=== PATIENT | female | born 1995 | race Caucasian/White ===

== ENCOUNTER 2025-02-17 13:54 | Observation (INO) | payer BC, SELFPAY ==
--- NOTE | ~2025-02-17 | CT_ITS ---
EXAMINATION: CT abdomen pelvis w con DATE: 02/17/2025 17:28 INDICATION: upper abd pain, n/v TECHNIQUE: Computed tomography (CT) of the abdomen and pelvis was performed with 100 mL Omnipaque-350 intravenous contrast. Automated exposure control and iterative reconstruction technique were employe d. The dose-length product was 699.38 mGy-cm. COMPARISON: None. FINDINGS: Lower thorax: Unremarkable Liver: Normal. Biliary/Gallbladder: Multiple gallstones. The gallbladder is distended. Mild gallbladder wall thicken ing/edema. Mild surrounding inflammatory change. No bile duct dilation. Pancreas: No mass or duct dilation. Spleen: Normal. Adrenals:No mass. Kidneys: No suspicious mass, obstructing stone, or hydronephrosis. GI tract: Mild distal esophageal and gastric wall edema. No small or large bowel dilation. Normal juancho endix. Mesentery/Peritoneum: No ascites, mass, or free air. Retroperitoneum: No mass. Pelvis: Pelvic organs are within normal limits. Soft Tissues: Soft tissues and body wall unremarkable. Bones: No acute osseous finding. IMPRESSION: Mild esophagitis/gastritis. Acute cholecystitis. Reviewed, dictated and finalized at location K.
[2025-02-17 13:56] VITALS: BP 150/102; PULSE 106; RESP 16; TEMP 37.3; O2SAT 100
[2025-02-17 16:30] LABS: Hematocrit 39.5 % (37.0-47.0); Hemoglobin 13.0 g/dL (12.0-15.0); Immature Granulocyte Percent A 0.4 % (0-0.5); Lymphocytes Absolute Auto 1.85 K/mm3 (0.9-3.2); Mean Corpuscular HGB Conc 32.9 g/dl (32-36); Mean Corpuscular Hemoglobin 30.4 pg (26-34); Mean Corpuscular Volume 92.3 fl (80-100); Nucleated Red Blood Cells Absolute Auto 0.000 K/mm3 (0.0-0.012); Nucleated Red Blood Cells Perc 0.0 % (0.0-0.2); Platelet Count Result 381 k/mm3 (150-375); Red Blood Count 4.28 M/mm3 (4.2-5.4); White Blood Count 12.7 K/mm3 (4.5-10.0)
[2025-02-17 16:41] LABS: Alanine Aminotransferase 14 U/L (6-35); Albumin Level 4.3 g/dL (3.5-5.1); Alkaline Phosphatase 78 U/L (38-126); Anion Gap 10 mmol/L (4-12); Aspartate Amino Transferase 21 U/L (14-36); Bilirubin,Total 0.6 mg/dL (0.2-1.3); Blood Urea Nitrogen 8 mg/dL (7-17); Calcium 9.5 mg/dL (8.4-10.2); Carbon Dioxide 24 mmol/L (22-30); Chloride 106 mmol/L (98-107); Estimated CRCL calculation 112 ml/min; Estimated Glomerular Filt Rate > 60; Glucose 109 mg/dL (65-110); Potassium 4.1 mmol/L (3.4-5.0); Sodium 140 mmol/L (137-145); Total Protein 8.4 g/dL (6.3-8.2)
[2025-02-17 16:54] VITALS: BP 134/82; PULSE 80; RESP 16; O2SAT 100
[2025-02-17 16:57] LABS: Add Urine Microscopic? YES; Appearance Urine Clear (Clear); Glucose Urine UA Negative (Negative); Leukocyte Esterase Ur Trace LEU/UL (Negative); Nitrate Urine Negative (Negative); Non Pathogenic Casts 0-2; Specific Grav Ur 1.026 (1.001-1.035)
[2025-02-17 17:00] LABS: BEDSIDEPREGUCG Negative (Negative)
[2025-02-17] MEDS: BELLADONNA ALK/PHENOB ELIX 10 ML, MAG HYDROX/ALUMINUM HYD/SIMETH 30 ML, LIDOCAINE 2% VI... PO (17:31)
[2025-02-17] MEDS: FAMOTIDINE 20 MG/2 ML VIAL IV PUSH (17:32)
[2025-02-17] MEDS: ONDANSETRON INJ 4 MG/2 ML VIAL IV PUSH ×2 (17:32→20:15)
[2025-02-17 17:35] VITALS: O2SAT 100
--- NOTE | 2025-02-17 18:02 | ED_ITS ---
HPI - Abdominal Pain General Chief Complaint: Abdominal Pain <LIANET Reyna Last Filed: 02/17/25 18:48> Stated Complaint: Upper ABD Pain w/ Nausea <LIANET Reyna Last Filed: 02/17/25 18:48> Time Seen by Provider: 02/17/25 16:30 <LIANET Reyna Last Filed: 02/17/25 18:48> Source: patient <LIANET Reyna Last Filed: 02/17/25 18:48> Mode of arrival: ambulatory <LIANET Reyna Last Filed: 02/17/25 18:48> Limitations: no limitations <LIANET Reyna Last Filed: 02/17/25 18:48> History of Present Illness HPI narrative: Patient is a 29-year-old female who presents the ED with report of upper abdominal pain. Patient reports having intermittent pain over the last 1 week. Worse with eating. Has had associated nausea and vomiting. She is concerned she has an ulcer. Has tried taking Tums at home without improvement. Denies taking anything further for acid reflux. She was seen at [facility] yesterday, had labs, EKG/trop performed. Did not have a CT scan. Was prescribed omeprazole and Zofran for home. Patient denies improvement of pain. Denies fevers. Denies diarrhea, constipation, rectal bleeding, melena. <LIANET Reyna Last Filed: 02/17/25 18:48> Related Data Allergies/Adverse Reactions: Allergies Allergy/AdvReac Type Severity Reaction Status Date / Time No Known Allergies Allergy Verified 02/17/25 14:01 <LIANET Reyna Last Filed: 02/17/25 18:48> Review of Systems 2 Review of Systems: All systems reviewed & are unremarkable except as noted in HPI. <LIANET Reyna Last Filed: 02/17/25 18:48> All systems reviewed & are unremarkable except as noted in HPI and below < LIANET Reyna Last Filed: 02/17/25 18:48> Exam 2 Narrative: GENERAL: Uncomfortable appearing, obese with BMI of 35.5, non-toxic, in no acute distress. HEAD: Normocephalic, atraumatic. RESPIRATORY: Airway patent, respirations nonlabored. Clear to auscultation bilaterally, no rales, rhonchi, wheezing. CARDIOVASCULAR: Regular rate and rhythm without murmurs, rubs, or gallops. ABDOMINAL: Soft, diffuse tenderness throughout right upper quadrant, epigastric region, nondistended. Normoactive BS. MUSCULOSKELETAL: Moves all extremities. No gross deformities. SKIN: Warm, dry, normal color. NEURO: A&O X3. Speech clear. Cranial nerves II-XII grossly intact. Steady gait. No ataxic movements. PSYCHIATRIC: Anxious, tearful. Normal interaction. <LIANET Reyna Last Filed: 02/17/25 18:48> Course MIX TECHNICIAN/PA Physician Supervision This visit was performed by both a physician and an APC. I performed all aspects of the MDM as documented. <Jose Alfredo Monson MD - Last Filed: 02/17/25 19:21> Vital Signs Vital signs: Vital Signs Temperature 99.2 F 02/17/25 13:56 Pulse Rate 106 H 02/17/25 13:56 Respiratory Rate 16 02/17/25 13:56 Blood Pressure 150/102 H 02/17/25 13:56 Pulse Oximetry 100 02/17/25 13:56 Oxygen Delivery Room Air 02/17/25 13:56 Temperature 99.2 F 02/17/25 13:56 Pulse Rate 80 02/17/25 16:54 Respiratory Rate 16 02/17/25 16:54 Blood Pressure 134/82 02/17/25 16:54 Pulse Oximetry 100 02/17/25 17:35 Oxygen Delivery Room Air 02/17/25 16:54 <Rhonda Maldonado PA-C - Last Filed: 02/17/25 18:48> Vital Signs Temperature 99.2 F 02/17/25 13:56 Pulse Rate 106 H 02/17/25 13:56 Respiratory Rate 16 02/17/25 13:56 Blood Pressure 150/102 H 02/17/25 13:56 Pulse Oximetry 100 02/17/25 13:56 Oxygen Delivery Room Air 02/17/25 13:56 Temperature 99.2 F 02/17/25 13:56 Pulse Rate 80 02/17/25 16:54 Respiratory Rate 16 02/17/25 16:54 Blood Pressure 134/82 02/17/25 16:54 Pulse Oximetry 100 02/17/25 17:35 Oxygen Delivery Room Air 02/17/25 16:54 <Jose Alfredo Monson MD - Last Filed: 02/17/25 19:21> MDM - Abdominal Pain MDM Narrative Medical decision making narrative: Patient presented to ED with upper abdominal pain, ongoing for the last 1 week, worsening, worse with eating. Associated with nausea, vomiting. Patient mildly tachycardic upon arrival, but uncomfortable/anxious appearing, possibly related to pain. Cbc with blood cell count of 12.7. Neutrophil predominance. CMP is unremarkable. Normal LFTs. Lipase. UA with trace leuk esterase, 6-10 WBC. Urine negative. Patient denies urinary complaints. Sent for culture. CT scan of abdomen/pelvis obtained showing acute cholecystitis, also showing esophagitis/gastritis. Consistent with clinical picture. Patient given morphine, Pepcid, GI cocktail. She is feeling improved, but fairly uncomfortable still. Rocephin and Flagyl started. Discussed case with Dr. Whitley, general surgery, accepted patient for admission under his service. Advised clear liquids until midnight, NPO after midnight. PRN pain meds ordered. Patient in agreement with plan and admission. <Rhonda Maldonado PA-C - Last Filed: 02/17/25 18:48> Medical Records Attestation: I reviewed the patient's medical records. <Rhonda Maldonado PA-C - Last Filed: 02/17/25 18:48> Lab Data Attestation: I reviewed the patient's lab results. <Rhonda Maldonado PA-C - Last Filed: 02/17/25 18:48> Result diagrams: 02/17/25 16:25 02/17/25 16:25 <LIANET Reyna Last Filed: 02/17/25 18:48> Labs: Lab Results 06/28/25 06/28/25 06/28/25 Range/Units 16:25 16:48 16:57 WBC 12.7 H (4.5-10.0) K/mm3 RBC 4.28 (4.2-5.4) M/mm3 Hgb 13.0 (12.0-15.0) g/dL Hct 39.5 (37.0-47.0) % MCV 92.3 (80-100) fl MCH 30.4 (26-34) pg MCHC 32.9 (32-36) g/dl RDW 11.7 (11.5-14.5) % Plt Count 381 H (150-375) k/mm3 MPV 8.5 (7.4-10.4) fl Immature Gran % (Auto) 0.4 (0-0.5) % Neut % (Auto) 77.4 H (45.5-73.1) % Lymph % (Auto) 14.5 L (18.3-44.2) % Bollinger % (Auto) 5.9 (2.6-8.5) % Eos % (Auto) 1.3 (0-4.4) % Baso % (Auto) 0.5 (0.2-1.2) % Lymph # (Auto) 1.85 (0.9-3.2) K/mm3 Bollinger # (Auto) 0.8 H (0.1-0.6) K/mm3 Eos # (Auto) 0.2 (0-0.3) K/mm3 Baso # (Auto) 0.1 (0.0-0.1) K/mm3 Abs Immat Gran (auto) 0.05 H (0.00-0.031) K/mm3 Absolute Neuts (auto) 9.9 H (1.3-6.7) K/mm3 Absolute Nucleated RBC 0.000 (0.0-0.012) K/mm3 Nucleated RBC % 0.0 (0.0-0.2) % Sodium 140 (137-145) mmol/L Potassium 4.1 (3.4-5.0) mmol/L Chloride 106 (98-107) mmol/L Carbon Dioxide 24 (22-30) mmol/L Anion Gap 10 (4-12) mmol/L BUN 8 (7-17) mg/dL Creatinine 0.69 L (0.7-1.0) mg/dL Estim Creat Clear Calc 112 ml/min Estimated GFR > 60 (59 - ) Glucose 109 (65-110) mg/dL Calcium 9.5 (8.4-10.2) mg/dL Total Bilirubin 0.6 (0.2-1.3) mg/dL AST 21 (14-36) U/L ALT 14 (6-35) U/L Alkaline Phosphatase 78 (38-126) U/L Total Protein 8.4 H (6.3-8.2) g/dL Albumin 4.3 (3.5-5.1) g/dL Lipase 49 (23-300) U/L Urine Color Dark yellow (Yellow) Urine Appearance Clear (Clear) Urine pH 5.5 (5.0-9.0) Ur Specific Stella 1.026 (1.001-1.035) Urine Protein Trace (Negative) mg/dL Urine Glucose (UA) Negative (Negative) mg/dL Urine Ketones Trace H (Negative) mg/dL Ur Blood (Man) Negative (Negative) Urine Nitrate Negative (Negative) Urine Bilirubin 1+ H (Negative) Urine Urobilinogen 1.0 (<2.0) mg/dL Leukocyte Esterase Rfl Trace H (Negative) SHAHIDA/UL Urine RBC 0-2 (0-2) /hpf Urine WBC 6-10 H (0-3) /hpf Ur Squamous Epith Cells Few (Few) /hpf Urine Bacteria None seen /hpf Urine Casts 0-2 POC Urine HCG, Qual Negative (Negative) <Rhonda Maldonado PA-C - Last Filed: 02/17/25 18:48> Lab Results 02/17/25 02/17/25 02/17/25 Range/Units 16:25 16:48 16:57 WBC 12.7 H (4.5-10.0) K/mm3 RBC 4.28 (4.2-5.4) M/mm3 Hgb 13.0 (12.0-15.0) g/dL Hct 39.5 (37.0-47.0) % MCV 92.3 (80-100) fl MCH 30.4 (26-34) pg MCHC 32.9 (32-36) g/dl RDW 11.7 (11.5-14.5) % Plt Count 381 H (150-375) k/mm3 MPV 8.5 (7.4-10.4) fl Immature Gran % (Auto) 0.4 (0-0.5) % Neut % (Auto) 77.4 H (45.5-73.1) % Lymph % (Auto) 14.5 L (18.3-44.2) % Bollinger % (Auto) 5.9 (2.6-8.5) % Eos % (Auto) 1.3 (0-4.4) % Baso % (Auto) 0.5 (0.2-1.2) % Lymph # (Auto) 1.85 (0.9-3.2) K/mm3 Bollinger # (Auto) 0.8 H (0.1-0.6) K/mm3 Eos # (Auto) 0.2 (0-0.3) K/mm3 Baso # (Auto) 0.1 (0.0-0.1) K/mm3 Abs Immat Gran (auto) 0.05 H (0.00-0.031) K/mm3 Absolute Neuts (auto) 9.9 H (1.3-6.7) K/mm3 Absolute Nucleated RBC 0.000 (0.0-0.012) K/mm3 Nucleated RBC % 0.0 (0.0-0.2) % Sodium 140 (137-145) mmol/L Potassium 4.1 (3.4-5.0) mmol/L Chloride 106 (98-107) mmol/L Carbon Dioxide 24 (22-30) mmol/L Anion Gap 10 (4-12) mmol/L BUN 8 (7-17) mg/dL Creatinine 0.69 L (0.7-1.0) mg/dL Estim Creat Clear Calc 112 ml/min Estimated GFR > 60 (59 - ) Glucose 109 (65-110) mg/dL Calcium 9.5 (8.4-10.2) mg/dL Total Bilirubin 0.6 (0.2-1.3) mg/dL AST 21 (14-36) U/L ALT 14 (6-35) U/L Alkaline Phosphatase 78 (38-126) U/L Total Protein 8.4 H (6.3-8.2) g/dL Albumin 4.3 (3.5-5.1) g/dL Lipase 49 (23-300) U/L Urine Color Dark yellow (Yellow) Urine Appearance Clear (Clear) Urine pH 5.5 (5.0-9.0) Ur Specific Stella 1.026 (1.001-1.035) Urine Protein Trace (Negative) mg/dL Urine Glucose (UA) Negative (Negative) mg/dL Urine Ketones Trace H (Negative) mg/dL Ur Blood (Man) Negative (Negative) Urine Nitrate Negative (Negative) Urine Bilirubin 1+ H (Negative) Urine Urobilinogen 1.0 (<2.0) mg/dL Leukocyte Esterase Rfl Trace H (Negative) SHAHIDA/UL Urine RBC 0-2 (0-2) /hpf Urine WBC 6-10 H (0-3) /hpf Ur Squamous Epith Cells Few (Few) /hpf Urine Bacteria None seen /hpf Urine Casts 0-2 POC Urine HCG, Qual Negative (Negative) <Jose Alfredo Monson MD - Last Filed: 02/17/25 19:21> Imaging Data Attestation: I personally reviewed and interpreted this imaging study as follows: < Rhonda Maldonado PA-C - Last Filed: 02/17/25 18:48> Radiologist's impression: ITS Impressions Abdomen/Pelvis CT 02/17/25 17:43 IMPRESSION: Mild esophagitis/gastritis. Acute cholecystitis. <Rhonda Maldonado PA-C - Last Filed: 02/17/25 18:48> ITS Impressions Abdomen/Pelvis CT 02/17/25 17:43 IMPRESSION: Mild esophagitis/gastritis. Acute cholecystitis. <Jose Alfredo Monson MD - Last Filed: 02/17/25 19:21> Discharge Plan Discharge Clinical Impression: Acute cholecystitis Gastritis Qualifiers: Gastritis type: unspecified gastritis Chronicity: acute Gastritis bleeding: w ithout bleeding Qualified Code(s): K29.00 - Acute gastritis without bleeding <Rhonda Maldonado PA-C - Last Filed: 02/17/25 18:48> Patient Disposition: Still a Patient <LIANET Reyna Last Filed: 02/17/25 18:48> Condition: Stable <LIANET Reyna Last Filed: 02/17/25 18:48>
[2025-02-17] MEDS: metroNIDAZOLE 500 MG/ISO 100ML 500 MG/100 ML BAG 100 MG IVPB (18:34)
[2025-02-17] MEDS: MORPHINE SULFATE (*CRX) 4 MG/ML INJ IV PUSH ×3 (18:36→22:22)
[2025-02-17] MEDS: SODIUM CHLORIDE 0.9% IV 1,000 ML 999 ML IV CONT (18:36)
[2025-02-17 18:56] LABS: Lipase 49 U/L (23-300)
[2025-02-17 20:23] VITALS: BMI 37.8
[2025-02-17 21:19] VITALS: BP 136/81; PULSE 78; RESP 16; TEMP 38.4; O2SAT 98
[2025-02-18] VITALS (12 sets, daily range): BP systolic 104–142; BP diastolic 59–100; PULSE 62–110; RESP 15–26; TEMP 36.2–36.9; O2SAT 96–100
[2025-02-18] MEDS: MORPHINE SULFATE (*CRX) 4 MG/ML INJ IV PUSH ×2 (00:22→02:20)
[2025-02-18] MEDS: metroNIDAZOLE 500 MG/ISO 100ML 500 MG/100 ML BAG 100 MG IVPB ×3 (02:17→17:17)
[2025-02-18] MEDS: IBUPROFEN IV 800 MG/200 ML 800 MG/200 ML BAG 400 MG IVPB ×2 (03:13→10:15)
[2025-02-18] MEDS: HYDROmorphone HCL INJ (*CRX) 2 MG/ML VIAL 1 MG IV PUSH ×2 (06:05→08:45)
[2025-02-18 07:09] LABS: Hematocrit 37.6 % (37.0-47.0); Hemoglobin 12.1 g/dL (12.0-15.0); Mean Corpuscular HGB Conc 32.2 g/dl (32-36); Mean Corpuscular Hemoglobin 30.6 pg (26-34); Mean Corpuscular Volume 94.9 fl (80-100); Platelet Count Result 337 k/mm3 (150-375); Red Blood Count 3.96 M/mm3 (4.2-5.4); White Blood Count 12.5 K/mm3 (4.5-10.0)
[2025-02-18 07:24] LABS: Alanine Aminotransferase 12 U/L (6-35); Albumin Level 3.8 g/dL (3.5-5.1); Alkaline Phosphatase 76 U/L (38-126); Anion Gap 10 mmol/L (4-12); Aspartate Amino Transferase 26 U/L (14-36); Bilirubin,Total 0.7 mg/dL (0.2-1.3); Blood Urea Nitrogen 5 mg/dL (7-17); Calcium 8.7 mg/dL (8.4-10.2); Carbon Dioxide 23 mmol/L (22-30); Chloride 105 mmol/L (98-107); Estimated CRCL calculation 126 ml/min; Estimated Glomerular Filt Rate > 60; Glucose 96 mg/dL (65-110); Potassium 3.7 mmol/L (3.4-5.0); Sodium 138 mmol/L (137-145); Total Protein 7.2 g/dL (6.3-8.2)
--- NOTE | 2025-02-18 09:49 | PM.IMHP ---
H&P: HPI History of Present Illness Date/Time: 02/18/25 09:49 Chief Complaint: Right upper quadrant pain Narrative: This is a 29-year-old woman who presented to the emergency department overnight with right upper quadrant pain. She was having intermittent pain for about 1 week but then about 3 days ago began experiencing constant pain. She was also experiencing nausea and vomiting. She remembers eating beef stroganoff for dinner before the pain started but does not recall any other foods that have made this worse. She has never had symptoms like this in the past. She did go to [facility] Emergency Department on Wednesday but no imaging was done and they said that it was likely gastritis. She then presented to our emergency department for further evaluation. She was noted to have an elevated white blood count but normal liver enzymes. CT showed evidence of acute cholecystitis with cholelithiasis. She was noted to have a fever last night but denied any fevers prior to this. Review of Systems Review of Systems: All systems reviewed & are unremarkable except as noted in HPI and below Eyes: Eyes: Denies change in vision ENT: Denies hearing loss, Denies neck pain and Denies sore throat Cardiovascular: Cardiovascular: Denies chest pain and Denies dyspnea Respiratory: Respiratory: Denies cough, Denies dyspnea and Denies wheezing Gastrointestinal: Gastrointestinal: Reports as per HPI Genitourinary: Genitourinary: Denies hematuria and Denies dysuria Musculoskeletal: Musculoskeletal: Denies arthralgias, Denies joint swelling and Denies neck pain Allergic/Immunologic: Allergic/Immunologic: Denies wheezing PMFSH Past Medical History Medical History (Updated 02/18/25 @ 09:54 by Darshan Whitley DO) Anxiety Surgical History Surgical History (Updated 02/18/25 @ 09:53 by Darshan Whitley DO) History of lumpectomy of left breast Family History Family History (Updated 02/17/25 @ 20:35 by Emigdio Holt RN) Grandparent Diabetes mellitus Hypertension Cancer of brain Grandparent Skin cancer Grandparent Thyroid cancer Grandparent Leukemia Social History Social History Smoking status: Never smoker Alcohol intake: current Drinks per week: 1 Substance use: never Do You Feel Safe in your Home?: Yes Lack of Transportation: No Lack of Food: Never True Current Housing: I Have Housing Concerned About Future Housing: No Difficulty Paying Gas/Electric Bills: No Difficulty Paying for Meds: No Currently Unemployed: No Education: Trade/Vocational Certificate Difficulty w/ Childcare or Family Care: No Spiritual care concerns: No Meds Home Medications and Allergies Home Medications ?Medication ?Instructions ?Recorded ?Confirmed ?Type sertraline 50 mg tablet 50 mg PO HS 02/17/25 02/17/25 History Allergies Allergy/AdvReac Type Severity Reaction Status Date / Time mustard Allergy Intermediate Anaphylaxis Verified 02/17/25 20:20 lactose Allergy Mild Diarrhea Verified 02/17/25 20:20 Vital Signs Vital Signs - 24 hr 02/17/25 13:56 02/17/25 16:54 02/17/25 17:35 Temperature 99.2 F Pulse Rate 106 H 80 Respiratory Rate 16 16 Blood Pressure 150/102 H 134/82 Pulse Oximetry 100 100 100 Oxygen Delivery Room Air Room Air 02/17/25 21:19 02/18/25 02:23 02/18/25 04:57 Temperature 101.1 F H 97.1 F L Pulse Rate 78 94 91 Respiratory Rate 16 26 H 20 Blood Pressure 136/81 142/100 H 128/80 Pulse Oximetry 98 100 96 Oxygen Delivery Exam Const: General: alert; No acute distress Orientation/consciousness: patient oriented x3 Limitations: no limitations HENMT: Head: normocephalic and atraumatic Ears: hearing grossly normal bilaterally Face/Nose/Sinus: Normal external nose present and Normal nares present Mouth: Yes Normal oral and palatal mucosa present and Yes moist mucous membranes Eyes: General: appearance normal, both eyes and all related structures Conjunctivae: conjunctivae normal Sclera: sclerae normal Pupils: Equal, round and reactive pupils present EOM: EOMs intact bilaterally Neck: Neck: normal visual inspection, full ROM, no lymphadenopathy, supple and no JVD Lymphatic: no lymphadenopathy noted Chest: Chest palpation & inspection: normal inspection of the chest Resp: Effort & Inspection: normal respiratory effort and able to speak in complete sentences Auscultation: clear to auscultation bilaterally Percussion: percussion normal Cardio: Jugular venous distension: no JVD Rate: regular rate Rhythm: regular rhythm Heart sounds: S1 normal heart sound present and S2 normal heart sound present Peripheral pulses: Peripheral pulses 2+ throughout GI: Inspection: normal to inspection and non-distended GI Palp: Yes Soft to palpation, Yes Tenderness to palpation present (GI) (Right upper quadrant), Yes Guarding due to palpation present (GI) (Right upper quadrant) and No Rebound tenderness present Auscultation: normal bowel sounds : General: Yes no CVA tenderness Back/Spine/Pelvis: Back: no CVA tenderness Skin: General skin exam: normal color and dry skin Neuro: General: patient oriented x3, gait normal, moves all extremities, no focal motor deficits and CN's II-XI intact bilaterally Cranial nerves: Yes Equal, round and reactive pupils present Speech: normal speech Extrem: General: normal to inspection and capillary refill normal H&P: Results Labs Labs: Short CBC 02/17/25 02/18/25 Range/Units 16:25 05:45 WBC 12.7 H 12.5 H (4.5-10.0) K/mm3 Hgb 13.0 12.1 (12.0-15.0) g/dL Hct 39.5 37.6 (37.0-47.0) % Plt Count 381 H 337 (150-375) k/mm3 BMP 02/17/25 02/18/25 16:25 05:45 Sodium 140 138 Potassium 4.1 3.7 Chloride 106 105 Carbon Dioxide 24 23 BUN 8 5 L Creatinine 0.69 L 0.63 L Glucose 109 96 Calcium 9.5 8.7 Liver Function 02/17/25 02/18/25 Range/Units 16:25 05:45 Total Bilirubin 0.6 0.7 (0.2-1.3) mg/dL AST 21 26 (14-36) U/L ALT 14 12 (6-35) U/L Alkaline Phosphatase 78 76 (38-126) U/L Albumin 4.3 3.8 (3.5-5.1) g/dL Urine 02/17/25 Range/Units 16:48 Urine Color Dark yellow (Yellow) Urine Appearance Clear (Clear) Urine pH 5.5 (5.0-9.0) Ur Specific [place] 1.026 (1.001-1.035) Urine Protein Trace (Negative) mg/dL Urine Glucose (UA) Negative (Negative) mg/dL Imaging CT scan - abdomen: Radiologist's impression: ITS Impressions Abdomen/Pelvis CT 02/17/25 17:43 IMPRESSION: Mild esophagitis/gastritis. Acute cholecystitis. Assessment and Plan Assessment and plan (1) Acute calculous cholecystitis: Code(s): K80.00 - Calculus of gallbladder with acute cholecystitis without obstruction Status: Acute Assessment and Plan: Have reviewed the CT and discussed findings with the patient. She has evidence of acute calculous cholecystitis and continues to have significant pain. She is getting Dilaudid q.2 hours p.r.n. but still is having breakthrough pain. She also had the fever last night which raises concerns for cholangitis or infected cholecystitis. She has been started on ceftriaxone and metronidazole. I have recommended laparoscopic cholecystectomy, possible open. I discussed the procedure, risks, benefits, and alternatives. I discussed that this can be a much more technically difficult surgery due to the active inflammation. There are risks of surrounding organ injury. There are also risks of aborting the laparoscopic cholecystectomy and just placing a drain in the gallbladder. Patient voiced her understanding. Will proceed with surgery today. (2) Anxiety: Code(s): F41.9 - Anxiety disorder, unspecified Status: Acute Hospitalist [facility] Medication Reconciliation I have utilized all available resources to obtain, update and review the patients current medications (includes all prescriptions, OTC, herbals, cannabis, and nutritional supplements).: Yes
--- NOTE | 2025-02-18 09:57 | WPDHPUPDATE1 ---
History and Physical Update Update Date/Time: 02/18/25 09:57 History and Physical has been reviewed, including an updated exam of the patient. There are NO changes in the patient's condition. Risks, benefits, and alternatives have been discussed and questions answered. Patient agrees to proceed with procedure.
[2025-02-18] MEDS: LACTATED RINGERS 1,000 ML 150 ML IV CONT (10:09)
--- NOTE | 2025-02-18 11:02 | P.PNAN_ITS ---
Anes - Initial Pre Proc Eval Procedure: Operation Date: 02/18/25 11:45 Proposed Procedures p Laparoscopic Cholecystectomy - Darshan Whitley DO Date/Time: 02/18/25 11:02 Surgeon: Darshan Whitley DO Pre Op Diagnosis: Acute cholecystitis Patient Data Age: 29 Gender: F Height: 1.6 m Weight: 97 kg Last Vital Signs Temp 36.2 C L 02/18/25 04:57 Pulse 91 02/18/25 04:57 Resp 20 02/18/25 04:57 BP 128/80 02/18/25 04:57 Pulse Ox 96 02/18/25 04:57 O2 Del Method Room Air 02/18/25 08:00 Allergies Allergy/AdvReac Type Severity Reaction Status Date / Time mustard Allergy Intermediate Anaphylaxis Verified 02/17/25 20:20 lactose Allergy Mild Diarrhea Verified 02/17/25 20:20 Home Medications ?Medication ?Instructions ?Recorded ?Confirmed ?Type sertraline 50 mg tablet 50 mg PO HS 02/17/25 02/17/25 History Laboratory Tests 02/17/25 02/17/25 02/17/25 16:25 16:48 16:57 WBC 12.7 H K/mm3 (4.5-10.0) RBC 4.28 M/mm3 (4.2-5.4) Hgb 13.0 g/dL (12.0-15.0) Hct 39.5 % (37.0-47.0) MCV 92.3 fl (80-100) MCH 30.4 pg (26-34) MCHC 32.9 g/dl (32-36) RDW 11.7 % (11.5-14.5) Plt Count 381 H k/mm3 (150-375) MPV 8.5 fl (7.4-10.4) Immature Gran % (Auto) 0.4 % (0-0.5) Neut % (Auto) 77.4 H % (45.5-73.1) Lymph % (Auto) 14.5 L % (18.3-44.2) [place] % (Auto) 5.9 % (2.6-8.5) Eos % (Auto) 1.3 % (0-4.4) Baso % (Auto) 0.5 % (0.2-1.2) Lymph # (Auto) 1.85 K/mm3 (0.9-3.2) [place] # (Auto) 0.8 H K/mm3 (0.1-0.6) Eos # (Auto) 0.2 K/mm3 (0-0.3) Baso # (Auto) 0.1 K/mm3 (0.0-0.1) Abs Immat Gran (auto) 0.05 H K/mm3 (0.00-0.031) Absolute Neuts (auto) 9.9 H K/mm3 (1.3-6.7) Absolute Nucleated RBC 0.000 K/mm3 (0.0-0.012) Nucleated RBC % 0.0 % (0.0-0.2) Sodium 140 mmol/L (137-145) Potassium 4.1 mmol/L (3.4-5.0) Chloride 106 mmol/L (98-107) Carbon Dioxide 24 mmol/L (22-30) Anion Gap 10 mmol/L (4-12) BUN 8 mg/dL (7-17) Creatinine 0.69 L mg/dL (0.7-1.0) Estim Creat Clear Calc 112 ml/min Estimated GFR > 60 (59 - ) Glucose 109 mg/dL (65-110) Calcium 9.5 mg/dL (8.4-10.2) Total Bilirubin 0.6 mg/dL (0.2-1.3) AST 21 U/L (14-36) ALT 14 U/L (6-35) Alkaline Phosphatase 78 U/L (38-126) Total Protein 8.4 H g/dL (6.3-8.2) Albumin 4.3 g/dL (3.5-5.1) Lipase 49 U/L (23-300) Urine Color Dark yellow (Yellow) Urine Appearance Clear (Clear) Urine pH 5.5 (5.0-9.0) Ur Specific Alfred 1.026 (1.001-1.035) Urine Protein Trace mg/dL (Negative) Urine Glucose (UA) Negative mg/dL (Negative) Urine Ketones Trace H mg/dL (Negative) Ur Blood (Man) Negative (Negative) Urine Nitrate Negative (Negative) Urine Bilirubin 1+ H (Negative) Urine Urobilinogen 1.0 mg/dL (<2.0) Leukocyte Esterase Rfl Trace H SHAHIDA/UL (Negative) Urine RBC 0-2 /hpf (0-2) Urine WBC 6-10 H /hpf (0-3) Ur Squamous Epith Cells Few /hpf (Few) Urine Bacteria None seen /hpf Urine Casts 0-2 POC Urine HCG, Qual Negative (Negative) 02/18/25 05:45 WBC 12.5 H K/mm3 (4.5-10.0) RBC 3.96 L M/mm3 (4.2-5.4) Hgb 12.1 g/dL (12.0-15.0) Hct 37.6 % (37.0-47.0) MCV 94.9 fl (80-100) MCH 30.6 pg (26-34) MCHC 32.2 g/dl (32-36) RDW 11.7 % (11.5-14.5) Plt Count 337 k/mm3 (150-375) MPV 8.9 fl (7.4-10.4) Immature Gran % (Auto) Neut % (Auto) Lymph % (Auto) [place] % (Auto) Eos % (Auto) Baso % (Auto) Lymph # (Auto) [place] # (Auto) Eos # (Auto) Baso # (Auto) Abs Immat Gran (auto) Absolute Neuts (auto) Absolute Nucleated RBC Nucleated RBC % Sodium 138 mmol/L (137-145) Potassium 3.7 mmol/L (3.4-5.0) Chloride 105 mmol/L (98-107) Carbon Dioxide 23 mmol/L (22-30) Anion Gap 10 mmol/L (4-12) BUN 5 L mg/dL (7-17) Creatinine 0.63 L mg/dL (0.7-1.0) Estim Creat Clear Calc 126 ml/min Estimated GFR > 60 (59 - ) Glucose 96 mg/dL (65-110) Calcium 8.7 mg/dL (8.4-10.2) Total Bilirubin 0.7 mg/dL (0.2-1.3) AST 26 U/L (14-36) ALT 12 U/L (6-35) Alkaline Phosphatase 76 U/L (38-126) Total Protein 7.2 g/dL (6.3-8.2) Albumin 3.8 g/dL (3.5-5.1) Lipase Urine Color Urine Appearance Urine pH Ur Specific Alfred Urine Protein Urine Glucose (UA) Urine Ketones Ur Blood (Man) Urine Nitrate Urine Bilirubin Urine Urobilinogen Leukocyte Esterase Rfl Urine RBC Urine WBC Ur Squamous Epith Cells Urine Bacteria Urine Casts POC Urine HCG, Qual Patient hx anesthesia problems: none Family hx anesthesia problems: none Results Review: All pre-operative results and documents have been reviewed as part of the pre- operative evaluation. PMFSH Past Medical History Medical History (Updated 02/18/25 @ 09:54 by Darshan Whitley DO) Anxiety Surgical History Surgical History (Updated 02/18/25 @ 09:53 by Darshan Whitley DO) History of lumpectomy of left breast Family History Family History (Updated 02/17/25 @ 20:35 by Emigdio Holt RN) Grandparent Diabetes mellitus Hypertension Cancer of brain Grandparent Skin cancer Grandparent Thyroid cancer Grandparent Leukemia Social History Social History Smoking status: Never smoker Alcohol intake: current Drinks per week: 1 Substance use: never Do You Feel Safe in your Home?: Yes Lack of Transportation: No Lack of Food: Never True Current Housing: I Have Housing Concerned About Future Housing: No Difficulty Paying Gas/Electric Bills: No Difficulty Paying for Meds: No Currently Unemployed: No Education: Trade/Vocational Certificate Difficulty w/ Childcare or Family Care: No Spiritual care concerns: No Anes - Eval Final PreProcedure Day of Procedure 02/18/25 11:02 Patient weight: obese Heart: regular rate and rhythm Lungs: clear to auscultation Airway: Mallampati scale class II Neurological: alert and oriented Last oral intake: >/= 8 hours ASA classification: II Emergent: yes Anesthetic plan: proceed Anesthesia type and monitoring: general ETT and standard monitoring Results Review: All pre-operative results and documents have been reviewed as part of the pre- operative evaluation. Informed Consent: The patient's anesthetic plan and its attendant risks and benefits were discussed with the patient/family/POA. Questions were solicited and answers provided to the satisfaction of the patient/family/POA.
--- NOTE | 2025-02-18 12:34 | S_PTH ---
PATIENT: July Angelo LOC: [id number] U#:[id number] AGE/SX: 29/F ROOM: 302 RE02/17/[address]: Darshan Whitley DO : 1995 BED: 01 DIS: 02/20/2025 SPEC #: [id number] RECD: 02/19/25 07:32 STATUS: JOSY REElma #: [id number] KIMMY: 02/18/25 12:[address]: Darshan Whitley DEPT: [facility] Surgical RECD BY: Dina Romano ENTERED: 02/19/25 07:32 SP TYPE: Surgical OTHR DR: Phuong Quiroga MD Tissues: A - Gallbladder Procedures: Hematoxylin and Eosin Stain Gross and Microscopic Level 3
[2025-02-18] MEDS: BUPIVACAINE/EPINEPHRINE 0.5% 30 ML VIAL INFILTRATE (12:40)
[2025-02-18] MEDS: LACTATED RINGERS 1,000 ML 30 ML IV CONT (13:39)
--- NOTE | 2025-02-18 13:39 | W.PM.PROC2 ---
Procedure Note - Detailed Date of Procedure 02/18/25 Pre-op Diagnosis Acute cholecystitis Post-op Diagnosis Same (Acute gangrenous cholecystitis) Procedure Performed Laparoscopic cholecystectomy Surgeon Darshan Whitley, DO Anesthesia General and Local (0.5% bupivacaine) Indications This is a 29-year-old woman who presented to the emergency department overnight with right upper quadrant abdominal pain for the past 3 days. She had been having some intermittent pain for about a week prior to this. Her pain became more severe and was associated with nausea and vomiting. She also had a fever last night. CT in the emergency department showed evidence of acute calculous cholecystitis. She had an elevated white blood count as well. She was admitted and discussions were made with the patient about treatment options. Decision was made to proceed with laparoscopic cholecystectomy, possible open. Findings Laparoscopic cholecystectomy was performed. The gallbladder appeared tense and dilated and the gallbladder wall appeared gangrenous. There were pericholecystic adhesions that were still fairly acute and came down easily with blunt dissection. The gallbladder was aspirated with a laparoscopic aspirating needle and about 80 mL of bile was aspirated to help decompress the gallbladder. The gallbladder wall was very thick and difficult to grasp. There was a very large stone in the neck of the gallbladder which was causing the neck to be somewhat bulbous and dilated. This made retraction difficult, but with careful dissection I was able to identify the cystic artery and cystic duct. There were many gallstones within the gallbladder which made removing somewhat difficult. It was placed in an Endo-Catch bag and then the stones were carefully broken and removed within the bag to help make the gallbladder somewhat smaller and able to extract from the subxiphoid incision. The gallbladder was removed and sent to the lab for pathology. I then chose to place a 19 round Reid drain within the gallbladder fossa and hepatic recess to continue monitoring for any further signs of infection, bile leak, or bleeding. Description of Procedure Procedure as well as risks, benefits, and alternatives were discussed with patient. Written consent was obtained and placed in chart prior to procedure. The patient was brought back to surgical suite. Patient was placed in supine position on operating table. Time-out was done to confirm patient and procedure. Patient was then intubated by the anesthesia department. Abdomen was prepped and draped in sterile fashion using chlorhexidine prep. 0.5% bupivacaine with epinephrine was infiltrated at each site of incision. A 5 millimeter incision was made near the umbilicus, and a 5 millimeter Optiview trocar was advanced through the abdominal layers under direct visualization. Once inside the abdominal cavity, carbon dioxide was insufflated to create a pneumoperitoneum. The camera was inserted and the abdomen was inspected. No immediate abnormalities were identified. The patient was placed in reverse Trendelenburg position and rotated slightly to the left. An 11 millimeter incision was made in the subxiphoid region, and an 11 millimeter trocar was inserted under direct visualization. Two 5 millimeter incisions were made in the right upper quadrant, and two 5 millimeter trocars were inserted under direct visualization. The gallbladder appeared very tense and dilated, therefore a laparoscopic aspirating needle was inserted into the fundus and the gallbladder was decompressed. The gallbladder was grasped at the fundus and retracted superiorly. Pericholecystic adhesions were carefully swept posteriorly while retracting the fundus of the gallbladder. It was then grasped at the infundibulum retracted laterally. Careful dissection around the neck of the gallbladder was performed using blunt dissection with a [place] grasper and hook electrocautery. The cystic duct was identified, and a window was created behind it. The cystic artery was also identified and a window was created behind it. The critical view of safety was identified, visualizing the cystic duct running directly into the neck of the gallbladder, and the cystic artery running directly into the wall of the gallbladder. A 5 millimeter clip field property loss specialist was then used to place 2 clips proximally and 1 clip distally on both the cystic duct and cystic artery. They were then both transected using endoscopic scissors. Once safely away from the rebeca hepatitis, the gallbladder was dissected free from the liver bed using hook electrocautery. Hemostasis was achieved along the way. The gallbladder was removed completely, placed in an Endo-Catch bag, and then removed through the subxiphoid port. I did have to extend the skin incision about 3 more mm and dilate the fascia with a curved hemostat. The liver bed was then inspected. Hemostasis appeared adequate, and our clips appeared secure. The area was gently irrigated with sterile saline. I then chose to place a 19 round Reid drain within the gallbladder fossa and hepatic recess. This was placed through the right lateral port and secured to the skin using a 3-0 nylon drain stitch. No other abnormalities were seen. The patient was flattened out in bed, and 1 final inspection was made around the abdominal cavity. The subxiphoid port was removed, and the fascia at this port site was reapproximated using an 0 Vicryl [id number]-wlwwn suture. The remaining ports were then removed under direct visualization, the camera was removed, and the pneumoperitoneum was released. The skin of the incisions was approximated using 4-0 Monocryl subcuticular sutures. Exofin glue was applied on top. The patient was then awakened from anesthesia, extubated, and transferred to recovery. Estimated Blood Loss 50 Drains Yes (19 round Reid) Pathology Yes (Gallbladder) Complications No immediate complications Condition Stable Disposition Floor [facility] Billing Surgery - Charge Forward: Surgery Billing
[2025-02-18] MEDS: HYDROcodone/acetaminophen (*CRX) 5-325 MG TABLET 1 TAB PO ×2 (17:20→20:50)
[2025-02-19] MEDS: HYDROcodone/acetaminophen (*CRX) 5-325 MG TABLET 1 TAB PO ×3 (01:15→20:21)
[2025-02-19] MEDS: metroNIDAZOLE 500 MG/ISO 100ML 500 MG/100 ML BAG 100 MG IVPB ×3 (01:17→17:54)
[2025-02-19 04:42] VITALS: BP 115/63; PULSE 97; RESP 16; TEMP 37; O2SAT 95
[2025-02-19] MEDS: HYDROcodone/acetaminophen (*CRX) 10-325 MG TABLET 1 TAB PO ×2 (05:29→17:28)
[2025-02-19 06:40] LABS: Hematocrit 33.8 % (37.0-47.0); Hemoglobin 10.8 g/dL (12.0-15.0); Mean Corpuscular HGB Conc 32.0 g/dl (32-36); Mean Corpuscular Hemoglobin 30.6 pg (26-34); Mean Corpuscular Volume 95.8 fl (80-100); Platelet Count Result 330 k/mm3 (150-375); Red Blood Count 3.53 M/mm3 (4.2-5.4); White Blood Count 14.6 K/mm3 (4.5-10.0)
[2025-02-19 06:54] LABS: Alanine Aminotransferase 17 U/L (6-35); Albumin Level 3.1 g/dL (3.5-5.1); Alkaline Phosphatase 65 U/L (38-126); Anion Gap 7 mmol/L (4-12); Aspartate Amino Transferase 26 U/L (14-36); Bilirubin,Total 0.5 mg/dL (0.2-1.3); Blood Urea Nitrogen 8 mg/dL (7-17); Calcium 8.5 mg/dL (8.4-10.2); Carbon Dioxide 27 mmol/L (22-30); Chloride 104 mmol/L (98-107); Estimated CRCL calculation 116 ml/min; Estimated Glomerular Filt Rate > 60; Glucose 83 mg/dL (65-110); Potassium 3.6 mmol/L (3.4-5.0); Sodium 138 mmol/L (137-145); Total Protein 6.2 g/dL (6.3-8.2)
[2025-02-19] MEDS: IBUPROFEN 600 MG TABLET PO (07:39)
[2025-02-19 08:00] VITALS: BP 119/74; PULSE 107; RESP 18; TEMP 36.8; O2SAT 92; O2SAT 95
[2025-02-19] MEDS: ENOXAPARIN 40 MG/0.4 ML SYRINGE SUB-Q (08:39)
--- NOTE | 2025-02-19 11:20 | P.PNGS_ITS ---
Progress Note: A&P Assessment and Plan (1) Acute calculous cholecystitis: Code(s): K80.00 - Calculus of gallbladder with acute cholecystitis without obstruction Status: Acute Assessment and Plan: * Postop day 1 following laparoscopic cholecystectomy for acute gangrenous cholecystitis. * Advanced to a low fat diet * Continue IV antibiotics * Monitor DAVID drain * Hopefully discharge home tomorrow if she continues to improve Plan I have discussed the patient's case and plan of care with Dr. Whitley. Subjective Subjective Date/Time Seen: 02/19/25 11:20 Post Op day: 1 (Laparoscopic cholecystectomy) Patient reports: no new complaints, feels better, voiding w/o difficulty, flatus, no bowel movement and afebrile Interval history: Patient is feeling well today. She reports having some incisional pain when getting up and moving, but her abdominal pain prior to surgery has nearly resolved. No nausea or vomiting. She is tolerating a low-fat diet. She is ambulating and tolerating activity. She has been afebrile since surgery, but mildly tachycardic this morning with a heart rate in the low 100s. WBC count up slightly to 14,000. Exam Const: General: comfortable and no acute distress GI: Inspection: non-distended, incision (Dry and glue intact) and other (DAVID drain with serosanguineous drainage) GI Palp: Yes Soft to palpation, Yes Tenderness to palpation present (GI) (Right upper quadrant and incisional) and No Guarding due to palpation present (GI) Auscultation: normal bowel sounds Objective Data Vital Signs Vital Signs: Vital Signs - 24 hr 02/18/25 13:39 02/18/25 13:50 02/18/25 14:05 Temperature 98.4 F Pulse Rate 105 H 101 H 104 H Respiratory Rate 15 15 18 Blood Pressure 108/59 L 104/60 116/72 Pulse Oximetry 96 99 100 Oxygen Delivery Simple Face Mask Simple Face Mask Room Air Oxygen Flow Rate 8 8 02/18/25 14:20 02/18/25 14:31 02/18/25 14:33 Temperature 98.2 F Pulse Rate 97 97 72 Respiratory Rate 17 17 20 Blood Pressure 115/70 117/74 122/64 Pulse Oximetry 96 97 100 Oxygen Delivery Room Air Room Air Oxygen Flow Rate 02/18/25 14:48 02/18/25 15:18 02/18/25 16:18 Temperature 98.3 F 98.2 F 98.4 F Pulse Rate 66 68 62 Respiratory Rate 18 16 18 Blood Pressure 128/64 119/62 121/72 Pulse Oximetry 99 100 99 Oxygen Delivery Oxygen Flow Rate 02/18/25 20:52 02/19/25 04:42 02/19/25 08:00 Temperature 98 F 98.6 F Pulse Rate 110 H 97 Respiratory Rate 20 16 Blood Pressure 130/66 115/63 Pulse Oximetry 96 95 95 Oxygen Delivery Room Air Oxygen Flow Rate 02/19/25 08:00 Temperature 98.3 F Pulse Rate 107 H Respiratory Rate 18 Blood Pressure 119/74 Pulse Oximetry 92 Oxygen Delivery Oxygen Flow Rate Intake/Output Intake/Output: Intake & Output 02/16/25 02/17/25 02/18/25 02/19/25 23:59 23:59 23:59 23:59 Intake Total 1150 2230 650 Output Total 27 20 Balance 1150 2203 630 Meds/Results Medications: Active Medications Generic Name Dose Route Start Last Admin Trade Name Freq PRN Reason Stop Dose Admin Hydrocodone Bitart/Acetaminophen 1 tab 02/18/25 14:33 02/19/25 01:15 Hydrocodone/Acetaminophen (*Crx) 5-325 Mg Tablet PO 1 tab Q4H PRN Administration Pain Rated 4-6 Hydrocodone Bitart/Acetaminophen 1 tab 02/18/25 14:33 02/19/25 05:29 Hydrocodone/Acetaminophen (*Crx) 10-325 Mg Tablet PO 1 tab Q4H PRN Administration Pain Rated 7-10 Diphenhydramine HCl 25 mg 02/18/25 14:33 Diphenhydramine Hcl Inj 50 Mg/Ml Vial IV PUSH Q6H PRN Itching Enoxaparin Sodium 40 mg 02/19/25 09:00 02/19/25 08:39 Enoxaparin 40 Mg/0.4 Ml Syringe SUB-Q 40 mg DAILY OCTAVIA Administration Hydromorphone HCl 1 mg 02/18/25 14:36 Hydromorphone Hcl Inj (*Crx) 2 Mg/Ml Vial IV PUSH Q2H PRN Breakthrough Pain Rated 7-10 Hydromorphone HCl 0.5 mg 02/18/25 14:36 Hydromorphone Hcl Inj (*Crx) 2 Mg/Ml Vial IV PUSH Q2H PRN Breakthrough Pain Rated 4-6 or NPO Ceftriaxone Sodium 1 gm in 50 mls @ 100 mls/hr 02/18/25 18:00 02/18/25 17:45 Rocephin 1 Gm/Ns 50 Ml IVPB Infused Q24H OCTAVIA Infusion Metronidazole 500 mg in 100 mls @ 100 mls/hr 02/18/25 02:00 02/19/25 11:12 Flagyl 500 Mg/Iso Soln 100 Ml IVPB 100 mls/hr Q8H OCTAVIA Administration Ibuprofen 800 mg in 200 mls @ 400 mls/hr 02/18/25 14:33 Caldolor 800 Mg/200 Ml IVPB Q6H PRN Breakthrough Pain Rated 1-3 or NPO Ibuprofen 600 mg 02/18/25 14:33 02/19/25 07:39 Ibuprofen 600 Mg Tablet PO 600 mg Q6H PRN Administration Pain Rated 1-3 Naloxone HCl 0.1 mg 02/18/25 14:33 Naloxone Hcl 0.4 Mg/Ml Vial IV PUSH Q2M PRN Opiate Reversal Ondansetron HCl 4 mg 02/17/25 18:23 02/17/25 20:15 Ondansetron Inj 4 Mg/2 Ml Vial IV PUSH 4 mg Q4H PRN Administration Nausea Radiology Results: ITS Impressions Abdomen/Pelvis CT 02/17/25 17:43 IMPRESSION: Mild esophagitis/gastritis. Acute cholecystitis. Labs Labs: Laboratory Results - last 24 hr 02/19/25 05:20 WBC 14.6 H RBC 3.53 L Hgb 10.8 L Hct 33.8 L MCV 95.8 MCH 30.6 MCHC 32.0 RDW 11.9 Plt Count 330 MPV 8.9 Sodium 138 Potassium 3.6 Chloride 104 Carbon Dioxide 27 Anion Gap 7 BUN 8 Creatinine 0.69 L Estim Creat Clear Calc 116 Estimated GFR > 60 Glucose 83 Calcium 8.5 Total Bilirubin 0.5 AST 26 ALT 17 Alkaline Phosphatase 65 Total Protein 6.2 L Albumin 3.1 L
[2025-02-19 12:00] VITALS: BP 98/74; PULSE 104; RESP 18; TEMP 36.6; O2SAT 95
[2025-02-19 16:00] VITALS: BP 106/66; PULSE 101; RESP 18; TEMP 35.9; O2SAT 95
[2025-02-19 19:40] VITALS: BP 106/59; PULSE 97; RESP 18; TEMP 36.6; O2SAT 95
[2025-02-20] VITALS: BP 109/73; PULSE 88; RESP 18; TEMP 36.8; O2SAT 93
[2025-02-20] MEDS: HYDROcodone/acetaminophen (*CRX) 10-325 MG TABLET 1 TAB PO ×2 (00:33→14:46)
[2025-02-20] MEDS: metroNIDAZOLE 500 MG/ISO 100ML 500 MG/100 ML BAG 100 MG IVPB ×2 (02:00→09:41)
[2025-02-20 04:00] VITALS: BP 125/77; PULSE 95; RESP 16; TEMP 36.9; O2SAT 94
[2025-02-20] MEDS: HYDROcodone/acetaminophen (*CRX) 5-325 MG TABLET 1 TAB PO (05:36)
[2025-02-20 06:33] LABS: Hematocrit 33.5 % (37.0-47.0); Hemoglobin 10.6 g/dL (12.0-15.0); Mean Corpuscular HGB Conc 31.6 g/dl (32-36); Mean Corpuscular Hemoglobin 30.5 pg (26-34); Mean Corpuscular Volume 96.3 fl (80-100); Platelet Count Result 355 k/mm3 (150-375); Red Blood Count 3.48 M/mm3 (4.2-5.4); White Blood Count 10.2 K/mm3 (4.5-10.0)
[2025-02-20] MEDS: IBUPROFEN 600 MG TABLET PO (07:44)
[2025-02-20 08:00] VITALS: BP 125/77; PULSE 88; RESP 18; TEMP 35.7; O2SAT 93; O2SAT 94
[2025-02-20] MEDS: ENOXAPARIN 40 MG/0.4 ML SYRINGE SUB-Q (08:31)
[2025-02-20 12:00] VITALS: BP 124/86; PULSE 89; RESP 18; TEMP 35.9; O2SAT 97
--- NOTE | 2025-02-20 13:58 | PM.DS ---
DS: Admitting Diagnosis Discharge Date 02/20/2025 Admitting Diagnosis Acute calculous cholecystitis DS: Discharge Diagnosis Discharge Diagnosis (1) Acute calculous cholecystitis: Code(s): K80.00 - Calculus of gallbladder with acute cholecystitis without obstruction Status: Acute DS: Summary Hospital Course Reason for hospitalization: This is a 29-year-old woman who presented to the emergency department overnight with right upper quadrant abdominal pain for the past 3 days. She had been having some intermittent pain for about a week prior to this. Her pain became more severe and was associated with nausea and vomiting. She also had a fever last night. CT in the emergency department showed evidence of acute calculous cholecystitis. She had an elevated white blood count as well. She was admitted and discussions were made with the patient about treatment options. Decision was made to proceed with laparoscopic cholecystectomy, possible open. Hospital Course: Patient presented to the ED on 02/18/2025 with right upper quadrant pain x3 days worsened with eating and with associated nausea and vomiting. WBC count was 12.7 neutrophil predominance. Normal CMP, LFTs, lipase. UA showed trace leukocyte esterase, 6-10 WBC. Negative urine . Patient denied urinary complaints. CT abdomen/pelvis demonstrated acute cholecystitis, also showing esophagitis/gastritis. She was given morphine, Pepcid, GI cocktail in the ED. Rocephin and Flagyl were started. Case was discussed with Dr. Steff rivas with the accepted the patient for admission under his service. Clear liquids were given until midnight and patient was made NPO after midnight for surgery the following day. P.r.n. pain medications ordered. Patient underwent laparoscopic cholecystectomy on 02/18/[address] Ruano. This was a difficult surgery as it was found that the gallbladder was gangrenous and difficult to extract. A 19 round Reid drain was placed within the gallbladder fossa and hepatic recess to continue monitoring for any signs of infection, bile leak, bleeding. After surgery the patient was awakened from anesthesia, extubated and transferred to recovery. She was then transferred back to the the medical surgery floor. On postop day 1 she reported no new complaints she was having some incisional pain with movement, but pain prior to surgery resolved. No nausea or vomiting. She has been able to tolerate a low-fat diet. Independently ambulating. She was afebrile, but had some slight tachycardia with heart rate in the low 100s. WBC count increased slightly to 14,000. On postop day 2, patient continues to improve. She notes that pain is decreased, and she is ambulating with more ease. WBC count down to 10,000. DAVID drain with serosanguineous fluid. No christi blood or pus present. No nausea or vomiting. Passing flatus. Patient is safe for discharge from surgical standpoint. DAVID drain pulled by nursing staff. Status at Discharge Functional status at discharge: independent ambulation Overall status at discharge: patient is back to baseline Time Spent with Patient Time attestation: Total time spent providing and/or coordinating discharge services: Time spent: Less than 30 minutes Exam Const: General: comfortable and no acute distress Neck: Neck: supple Resp: Effort & Inspection: normal respiratory effort Cardio: Rate: regular rate GI: GI Palp: Yes Soft to palpation Other: Incision sites dry and intact with no signs of infection. DAVID drain functioning well with serosanguineous fluid in the bulb. Very minimal tenderness. Skin: General skin exam: normal color and no rashes or lesions noted Neuro: Sensory Exam: normal sensation Extrem: General: normal to inspection Psych: Mental Status: mental status grossly normal DS: Data Data Completed and Pending Completed studies during hospitalization: Pending at discharge 02/18/25 12:34 Surgical [PTH] Routine Labs on day of discharge: Labs from last 24 hours 02/20/25 06:17 WBC 10.2 H RBC 3.48 L Hgb 10.6 L Hct 33.5 L MCV 96.3 MCH 30.5 MCHC 31.6 L RDW 11.9 Plt Count 355 MPV 8.8 Discharge Plan Discharge Attending physician on discharge: Darshan Ruano Discharging Clinician: Hetal Fong Anticipated Discharge Date/Time: 02/20/25 14:15 Patient Disposition: Home Activity: may shower Diet: low fat Wound Care Instructions: other - see discharge instructions Discharge Instructions: DISCHARGE INSTRUCTION SHEET FOR HERNIA, GALLBLADDER AND APPENDIX SURGERIES DR. RUANO PATIENT TO TAKE HOME 1. May shower tomorrow, 24 hours after drain removal. 2. Call office for: Wound increasingly painful or bleeding Vomiting Fever of greater than 101 degrees 3. If no bowel movement for three days, take 1 oz. (30 ml) Milk of Magnesia or MiraLax 17g 1 to 2 times daily. 4. No heavy lifting > 10-15 pounds x 2 weeks for laparoscopic cholecystectomy or appendectomy. 5. No driving for 3 days or while taking narcotic pain medications. 6. Ice to surgical site for 48 hours (30 min on, then 30 min off). 7. Up walking 10-30 minutes three times per day. 8. Resume previous home medications. 9. Follow-up 10-14 days in office for wound check or as previously scheduled. Call office for appointment. [phone]) 10. Oral pain medications prescription to be sent to pharmacy. Take Tylenol 500mg every 6 hours and Ibuprofen 600mg every 6 hours for the first 2 days, then as needed. 11. NUTRITION: Start out by drinking fluids and increase your diet as tolerated. If you experience nausea, try dry toast, crackers, and 7-UP. If nausea or vomiting persists, contact your surgeon?s office. 12. Gallbladders-Low Fat Diet for 2 weeks Revised December 2018 Patient Instructions: Antibiotic Form, Low Fat Diet (DC) Patient Language: [place] Islander Stand Alone Forms: General Discharge Information Follow-up/Referrals: Darshan Ruano, [Physician] - 2 Weeks Discharge Medications: New hydrocodone-acetaminophen 5-325 mg Tablet 1 tablet PO Q6H PRN (Reason: pain, moderate) Qty: 10 0RF metronidazole 500 mg tablet 500 mg PO Q8H Qty: 15 0RF amoxicillin-pot clavulanate 875-125 mg tablet 1 tablet PO Q12H Qty: 15 0RF Continued sertraline 50 mg tablet 50 mg PO HS Date of admission: 02/17/25 18:23 Primary Care Provider: Phuong Quiroga Admitting Provider: Darshan Ruano Attending physician on admission: Darshan Ruano Condition: Stable
== END 2025-02-20 17:18 | disposition home or self-care (01) ==
LOC: ANHED 18:48 → ANH3MEDSUR 19:19
PROVIDERS: Emergency Medicine; Nurse Practitioner Family; Admitting Provider Surgery; Emergency Provider Physician Assistant; PCP Family Medicine; Visit Provider Surgery
PROC: 0FT44ZZ Resection of Gallbladder, Percutaneous Endoscopic Approach (ICD-10-PCS; CPT 47562; principal; 2025-02-18 11:45)
DX: K80.00 Calculus of gallbladder with acute cholecystitis without obstruction (principal); K82.A1 Gangrene of gallbladder in cholecystitis; K82.8 Other specified diseases of gallbladder; F41.9 Anxiety disorder, unspecified; K29.00 Acute gastritis without bleeding; E66.9 Obesity, unspecified; Z68.37 Body mass index [BMI] 37.0-37.9, adult; Z79.899 Other long term (current) drug therapy
CPT/HCPCS: 47562; 36415; 74177; 80053; 81001; 81025; 83690; 85025; 85027; 87086; 88304; 96365; 96367; 96375; 96376; 99285; A9270; G0378; J0696; J1100; J1171; J1650; J1741; J1836; J2250; J2270; J2405; J2704; J3010; J7030; J7120; Q9967

== ENCOUNTER 2025-02-21 03:01 | Emergency (ER) | payer BC, SELFPAY ==
[2025-02-21] VITALS (22 sets, daily range): BP systolic 109–134; BP diastolic 70–94; PULSE 87–114; RESP 15–22; TEMP 36.6; O2SAT 95–100
--- NOTE | ~2025-02-21 | CT_ITS ---
CT of the Abdomen and Pelvis: Indication: Nausea and vomiting status post cholecystectomy Technique: 2.5 mm axial scans were obtained through the abdomen and pelvis following intravenous adm inistration of 100 cc of Omnipaque 350. Dose reduction technique was used on this scan by utilizing a utomated exposure control and iterative reconstruction technique. The dose-length product (DLP) was 1 085.86 mGy-cm. COMPARISON: 02/17/2025 Findings: Scans through the lung bases demonstrate small bilateral pleural effusions with mild bibas ilar atelectatic change. The liver, spleen, pancreas, adrenals and kidneys are within normal limits. Cholecystectomy clips are present. There is amorphous soft tissue edema and fluid in the gallbladder fossa extending to the in frahepatic region and right paracolic gutter. There is a small more well-defined and peripherally enh ancing fluid collection in the infrahepatic region measuring 3.9 x 2.8 cm (coronal image 36, axial im age 89). No evidence of aortic aneurysm. No lymphadenopathy. No bowel obstruction or bowel wall thickening. There is no evidence to suggest acute appendicitis. Mi nimal amounts of subcutaneous emphysema are compatible with recent surgery. Images through the pelvis were performed. Urinary bladder unremarkable. 3.1 cm left ovarian cyst pres ent. No pelvic ascites. Impression: 3.9 x 2.8 cm fluid collection in the infrahilar region with additional sign more amorphous fluid and/ or edematous changes in the gallbladder fossa and right paracolic gutter region. Findings could refle ct postoperative abscess versus possibly small biloma. If there is concern for bile leak, then HIDA s can would be recommended for further evaluation. Small bilateral pleural effusions. 3.1 cm left ovarian cyst. Reviewed, dictated and finalized at location M. Impression: 3.9 x 2.8 cm fluid collection in the infrahilar region with additional sign mor e amorphous fluid and/or edematous changes in the gallbladder fossa and right p aracolic gutter region. Findings could reflect postoperative abscess versus pos sibly small biloma. If there is concern for bile leak, then HIDA scan would be recommended for further evaluation. Small bilateral pleural effusions. 3.1 cm left ovarian cyst.
--- OUTSIDE RECORDS SUMMARY | 2025-02-21 03:04 | XMS_ITS | Clinical Summary ---
Author Organization [facility] [place] 163 [facility] Address [address] [place] [address] Care Team Providers Care Generation Engineering Technologist Name Role Phone Phuong Quiroga MD Primary Care Provider [phone]- [phone] Allergies Active Allergy Reactions Criticality Noted Date Comments Lactose Unknown 08/01/2024 Medications multivit-min/ir on fum/folic ac (ONE-A-DAY WOMEN'S COMPLETE ORAL) Take by mouth A ctive BIOTIN ORAL Take by mouth Acti ve melatonin tablet Take 1.5 tablets (1.5 mg total) by mouth Active naproxen (NAPROSYN) 500 mg tablet Take 1 tablet (500 mg total) by mouth 2 (two) times a day with meals 30 tablet 5 Active methocarbamoL (ROBAXIN) 500 mg tablet Take 1 tablet (500 mg total) by mouth 2 (two) times a day 20 tablet 5 Active lidocaine (LIDODERM) 5 % Place 1 patch on the skin daily for 14 days Remove & discard patch within 12 hours or as directed by . 14 patch [address] (NexIUM) 40 mg capsuleIndicati ons:Treatment of Non-Bleeding Gastric Disorder Take 1 capsule (40 mg total) by mouth daily before breakfast 30 capsule 5 02/18/20 26 Active Active Problems No known active problems Encounters Date Type Department Care Team Description 02/17/2025 6:44 AM CDT - 02/17/2025 8:33 AM CDT Emergency [facility] Emergency Department 1 [place] [address] Franklyn Holly MD Abdominal pain (Primary Dx) Discharge Disposition: Discharge to home or self care from Last 3 Months Medical History Medical History Date Comments Anemia Anxiety Social History Tobacco Use Types Packs/Day Years Used Date Smoking Tobacco: Never Smokeless Tobacco: Never Tobacco Cessation:Counseling Given: Not Answered Alcohol Use Standard Drinks/Week Comments Yes 0 (1 standard drink = 0.6 oz pur e alcohol) occasionally Personal Safety Answer Date Recorded Have you ever been in or are you currently in a harmful physical or emotional relationship or is someone making you feel afraid or unsafe? 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 Gender Identity Not on file Sexual Orientation Not on file Obstetrics History Last Filed Vital Signs Vital Sign Reading Time Taken Comments Blood Pressure 135/94 02/17/2025 6:05 AM CDT Pulse 78 02/17/2025 6:05 AM CDT Temperature 36.8 C (98.2 F) 02/17/2025 1:27 AM CDT Respiratory Rate 16 02/17/2025 6:05 AM CDT Oxygen Saturation 100% 02/17/2025 6:05 AM CDT Inhaled Oxygen Concentration - - Weight 90.7 kg (200 lb) 02/17/2025 1:27 AM CDT Height 160 cm (5' 3) 02/17/2025 1:27 AM CDT Body Mass Index 35.43 02/17/2025 1:27 AM CDT Plan of Treatment Health Maintenance Due Date Last Done Comments Cervical Cancer Screening 1996 Depression Screening 1996 Hepatitis C Screening 1996 DTaP/Tdap/Td Vaccine (1 - Tdap) 12/30/2007 Varicella Vaccines (1 of 2 - 13+ 2-dose series) 2009 Hepatitis B Screening 2014 Regular Well Visit/Exam 18-64 2014 Influenza Vaccine Completed 08/12/2024 HPV Vaccines Aged Out No longer eligi ble based on patient's age to complete this topic Pneumococcal vaccine <65 Aged Out No longer eligible based on patient's age to complete this topic Procedures Procedure Name Priority Date/Time Associated Diagnosis Comments EGFR STAT 02/17/2025 7:22 AM CDT DIFFERENTIAL AUTO STAT 02/17/2025 7:2 2 AM CDT TROPONIN T HIGH-SENSITIVITY SERIES (BASELINE, 2HR, 4HR, 6HR) STAT 02/17/2025 7:22 AM CDT LIPASE STAT 02/17/2025 7:22 AM CDT COMPREHENSIVE METABOLIC PANEL STAT 02/17/2025 7:22 AM CDT CBC WITH AUTO DIFFERENTIAL STAT 02/17/2025 7:22 AM CDT URINALYSIS, MICROSCOPIC ONLY STAT 02/17/2025 2:33 AM CDT URINE CULTURE STAT 02/17/2025 2:33 AM CDT URINALYSIS AND REFLEX TO MICROSCOPIC AND CULTURE STAT 02/17/2025 2:33 AM CDT POCT HCG, URINE Routine 02/17/2025 2:15 AM CDT ECG 12-LEAD STAT 02/17/2025 1:37 AM CDT from Last 3 Months Results * Troponin T high-sensitivity series (baseline, 2hr, 4hr, 6hr) (02/17/2025 7:22 AM CDT) Trop T hs <6 <=14 ng/L Comment: Interpretive Data For further hscTnT resources including the diagnostic algorithm and an aid in interpretation, copy and paste this link: https://nrl.testcatalog.org/show/hsTrop Current Interpretive Data last revised 2020. Blood 02/17/2025 7:22 AM CDT 02/17/2025 7:31 AM CDT us Stephan Christopher MD LAB BLOOD ORDERABLES Final Re sult GLENDA DOLAN [place]) 1 [facility] Department [place] [address] [phone] * eGFR (02/17/2025 7:22 AM CDT) eGFR >90 >=60 mL/min/1. 73 m2 Comment: Interpretive Data Reference Interval Normal >/= 90 mL/min/1.73m2 Mildly decreased* 60 - 89 mL/min/1.73m2 Mildly to moderately decreased 45 - 59 mL/min/1.73m2 Moderately to severely decreased 30 - 44 mL/min/1.73m2 Severely decreased 15 - 29 mL/min/1.73m2 Kidney Failure < 15 mL/min/1.73m2 *Relative to young adult level Estimated glomerular filtration rate is determined by the 2020 CKD-EPI equation recommended by the National Kidney Foundation (A Unifying Approach to GFR Estimation: Recommendations of the NKF-ASK Task Force on Reassessing the Inclusion of Race in Diagnosing Kidney Disease, JASN 2020). The CKD-EPI equation should not be used for patients with unstable renal function and has not been validated in children and those over 70. Current interpretive data was last reviewed 2021. Blood 02/17/2025 7:22 AM CDT 02/17/2025 7:31 AM CDT us Stephan Christopher MD LAB BLOOD ORDERABLES Final Re sult [facility] ([place]) 1 [facility] Department [place] [address] * (ABNORMAL) Differential, auto (02/17/2025 7:22 AM CDT) Neutrophil abs 8.38(H) 1.50 - 6.50 K/cumm Imm gran abs 0.03 0.00 - 0.10 K/cumm [facility] (IAN) Lymphocyte abs 1.54 0.80 - 3.30 K/cumm [facility] (IAN) Monocyte abs 0.54 0.20 - 0.80 K/cumm [facility] (IAN) Eosinophil abs 0.19 0.00 - 0.50 K/cumm [facility] (IAN) Basophil abs 0.05 0.00 - 0.10 K/cumm [facility] (IAN) Neutrophil pct 78.0 % [facility] (IAN) Comment: Interpretive Data Percent cell count reference ranges are not reported, since discordance with absolute values may lead to misinterpretation of CBC data. Current Interpretive Data was last revised on 2017. Imm gran pct 0.3 % [facility] (IAN) Comment: Interpretive Data Percent cell count reference ranges are not reported, since discordance with absolute values may lead to misinterpretation of CBC data. Current Interpretive Data was last revised on 2017. Lymphocyte pct 14.4 % [facility] (IAN) Comment: Interpretive Data Percent cell count reference ranges are not reported, since discordance with absolute values may lead to misinterpretation of CBC data. Current Interpretive Data was last revised on 2017. Monocyte pct 5.0 % [facility] (IAN) Comment: Interpretive Data Percent cell count reference ranges are not reported, since discordance with absolute values may lead to misinterpretation of CBC data. Current Interpretive Data was last revised on 2017. Eosinophil pct 1.8 % [facility] (IAN) Comment: Interpretive Data Percent cell count reference ranges are not reported, since discordance with absolute values may lead to misinterpretation of CBC data. Current Interpretive Data was last revised on 2017. Basophil pct 0.5 % [facility] (IAN) Comment: Interpretive Data Percent cell count reference ranges are not reported, since discordance with absolute values may lead to misinterpretation of CBC data. Current Interpretive Data was last revised on 2017. Blood 02/17/2025 7:22 AM CDT 02/17/2025 7:31 AM CDT us Stephan Christopher MD LAB BLOOD ORDERABLES Final Re sult GLENDA DOLAN (IAN) 1 [facility] Department [place] [address] * (ABNORMAL) CBC with auto differential (02/17/2025 7:22 AM CDT) WBC 10.73(H) 3.80 - 9.90 K/cumm Hgb 12.6 11.9 - 15.5 g/dL [facility] (IAN) Hct 37.7 35.6 - 45.5 % [facility] (IAN) Plt 354 150 - 400 K/cumm [facility] (IAN) MPV 8.6(L) 9.1 - 12.3 fL [facility] (IAN) RBC 4.10 3.90 - 5.20 M/cumm [facility] (IAN) MCV 92.0 81.3 - 96.4 fL [facility] (IAN) MCH 30.7 27.1 - 33.3 pg [facility] (IAN) MCHC 33.4 32.3 - 35.7 g/dL [facility] (IAN) RDW CV 11.5 11.1 - 14.9 % [facility] ([place]) RDW SD 38.9 35.7 - 48.1 fL [facility] (IAN) NRBC abs 0.00 0.00 - 0.01 K/cumm [facility] (IAN) Blood Venous blood specimen / Unknown 02/17/2025 7:22 AM CDT 02/17/2025 7:31 AM CDT us Stephan Christopher MD LAB BLOOD ORDERABLES Final Re sult Performing Organization Address City/[facility]/ZIP Co de Phone Number GLENDA DOLAN (IAN) 1 [facility] [employer] [place] [address] * Lipase (02/17/2025 7:22 AM CDT) Lipase 20 10 - 99 Units/L Blood Venous blood specimen / Unknown 02/17/2025 7:22 AM CDT 02/17/2025 7:31 AM CDT Stephan Christopher MD LAB BLOOD ORDERABLES Final Re sult [facility] ([facility]) 1 [facility] [employer] [place] [address] * Comprehensive metabolic panel (02/17/2025 7:22 AM CDT) Sodium 136 135 - 145 mmol/L Potassium, pl 4.0 3.3 - 4.9 mmol/L [facility] (IAN) Chloride 101 97 - 110 mmol/L [facility] ([place]) CO2 23 22 - 32 mmol/L [facility] (IAN) Anion gap 12 2 - 15 mmol/L [facility] (IAN) BUN 7 6 - 25 mg/dL [facility] (IAN) Creatinine 0.64 0.60 - 1.10 mg/dL [facility] (IAN) Glucose 96 70 - 199 mg/dL [facility] (IAN) Comment: Interpretive Data Fasting glucose >/= 126 mg/dl is diagnostic for diabetes. Fasting is defined as no caloric intake for at least 8 hours. Fasting glucose between 100 mg/dl to 125 mg/dl is diagnostic of prediabetes. In a patient with classic symptoms of hyperglycemia or hyperglycemic crisis, a random glucose >/= 200 mg/dl is diagnostic for diabetes. In the absence of unequivocal hyperglycemia, results should be confirmed by repeat testing. The classification and Diagnosis of Diabetes Diabetes Care 202; 46: S19-S40. Current interpretive data was last revised 2022. Calcium 9.1 8.5 - 10.3 mg/dL [facility] (IAN) Bilirubin, total 0.5 0.1 - 1.2 mg/dL [facility] (IAN) Protein, pl 7.7 6.5 - 8.5 g/dL [facility] (IAN) Albumin 3.9 3.5 - 5.0 g/dL [facility] (IAN) Alk phos 88 40 - 130 Units/L [facility] ([place]) ALT 9 7 - 45 Units/L [facility] (IAN) AST 12 10 - 45 Units/L [facility] (IAN) Blood 02/17/2025 7:22 AM CDT 02/17/2025 7:31 AM CDT us Stephan Christopher MD LAB BLOOD ORDERABLES Final Re sult [facility] (IAN) 1 [facility] [place] [address] * (ABNORMAL) Urinalysis reflex to microscopic and culture Urine (02/17/2025 2:33 AM CDT) Color, ur Yellow Yellow Clarity, ur Turbid(A) Clear [facility] (IAN) Specific gravity, ur 1.036(H) 1.003 - 1.030 [facility] (IAN) pH, urine 6.0 [facility] (IAN) Comment: Interpretive Data U rine pH is affected by diet, medications, systemic acid-base disturbances, and renal tubular function. pH may affect urinary stone formation. For example, urine pH below 6.0 may help reduce the tendency for calcium phosphate stones and pH greater than 6.0 may reduce the tendency for uric acid stone formation. Source: [facility] Current Interpretive Data was last revised on 2017 Protein, ur ql Trace Negative [facility] (IAN) Glucose, ur ql Negative Negative [facility] (IAN) Ketones, ur Negative Negative [facility] (IAN) Bilirubin, ur Negative Negative [facility] (IAN) Blood, ur Negative Negative [facility] (IAN) Urobilinogen, ur 2.0(A) <2.0 mg/dL [facility] (IAN) Nitrite, ur Negative Negative [facility] (IAN) Leukocyte esterase, ur 2+(A) Negative [facility] (IAN) UA reflex comment Reflex to microscopic UA will be performed. [facility] (IAN) Urine 02/17/2025 2:33 AM CDT 02/17/2025 2:44 AM CDT us Stephan Christopher MD LAB MICROBIOLOGY - GENERAL OR DERABLES Final Result [facility] (IAN) [address] [facility] [place] [address] * (ABNORMAL) Urinalysis, microscopic only (02/17/2025 2:33 AM CDT) WBC, ur 11-20(A) 0 - 5 /HPF RBC, ur 3-5(A) 0 - 2 /HPF GLENDA DOLAN (IAN) Epithelial cells, squamous, ur 11-20(A) 0 - 5 /HPF GLENDA DOLAN (IAN) Mucous, ur Present(A) GL[facility]DA [facility] ([place]) Culture Reflex Comment Reflex to urine culture will be performed. GLENDA DOLAN (IAN) Urine 02/17/2025 2:33 AM CDT 02/17/2025 2:44 AM CDT Stephan Christopher MD LAB URINE ORDERABLES Final Re sult Performing Organization Address City/[facility]/ZIP Co de Phone Number GLENDA DOLAN ([place]) 1 [facility] [employer] [place] [address] * Urine culture Urine (02/17/2025 2:33 AM CDT) Report Final Report: Growth indicative of contamination with periurethral kali. Please submit a new specimen with special attention given to the collection process and to prompt transport to the laboratory. Comment:Testing performed by : [facility], 1 [facility] [place] [address] Organism GROWTH INDICATES CONTAM WITH PERIURETHRAL KALI. GLENDA DOLAN (IAN) Urine 02/17/2025 2:33 AM CDT 02/17/2025 5:45 AM CDT Narrative GLENDA DOLAN (IAN) - 02/18/2025 12:23 PM CDT Urine culture reflexed based upon urinalysis results. Testing performed by [facility] ([phone]) Stephan Christopher MD LAB MICROBIOLOGY - GENERAL OR DERABLES Final Result Performing Organization Address City/[facility]/ZIP Co de Phone Number GLENDA DOLAN ([place]) 1 [facility] [employer] [place] [address] * POCT hCG, urine (02/17/2025 2:15 AM CDT) HCG, ur, POC Negative Negative Lot Number [id number] QC Backgroud Clear Acceptable QC Control Line Acceptable Urine 02/17/2025 2:15 AM CDT Stephan Christopher MD POINT OF CARE TEST ORDERABLES Final Result * ECG 12 lead (02/17/2025 1:37 AM CDT) 02/17/2025 1:37 AM CDT Narrative [facility] - 02/17/2025 5:42 PM CDT Vent Rate: 100 bpm RR Interval: 598 msec VT Interval: 143 msec QRS Duration: 87 msec QT Interval: 347 msec QTC Interval: 404 msec P-R-T [place]: 26 - 15 - 11 degrees IMPRESSION: SINUS TACHYCARDIA ABNORMAL RHYTHM ECG Electronically Signed By: Madhu Coyle MD Stephan Christopher MD ECG ORDERABLES Final Result [facility] from Last 3 Months Insurance ison furniture OOS Member Subscriber Plan / Payer (Ef fective 2024-Present) Name:July Angelo Relation to Subscriber:Spouse Name:Derick Angelo Date of :1995 Address: [address] [place] [address] Payer ID:[id number] (NAIC) Type: ALLIANCE Address: [facility] [id number] [place] [id number] Care Teams Generation Engineering Technologist Relationship Specialty Start Date End Date Phuong Quiroga MD [address] [place] [address] PCP - General Family Medicine 08/01/24
--- OUTSIDE RECORDS SUMMARY | 2025-02-21 03:04 | XMS_ITS | Referral Summary ---
Author Organization [facility] [place] 163 [facility] Address [address] [place] [address] Care Team Providers Care Relocation Counselor Name Role Phone Phuong Quiroga MD Primary Care Provider [phone] Encounters Date Type Department Care Team Description 02/17/2025 6:44 AM CDT - 02/17/2025 8:33 AM CDT Emergency [facility] Emergency Department 1 [place], [place] [id number] Franklyn Holly MD Abdominal pain (Primary Dx) Discharge Disposition: Discharge to home or self care from Last 3 Months Allergies Active Allergy Reactions Criticality Noted Date [...] mouth daily before breakfast 30 capsule 5 06/28/20 26 Active Active Problems No known active problems Social History Tobacco Use Types Packs/Day Years [...] on file 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 Gender Identity Not on file Sexual Orientation Not on file Last Filed Vital Signs Vital Sign Reading [...] 02/17/2025 1:27 AM CDT Plan of Treatment Not on file Procedures Procedure Name Priority Date/Time Associated Diagnosis [...] MD LAB BLOOD ORDERABLES Final Re sult [facility] [place] 1 [facility] Department of Laboratories [place], [place] [id number] * eGFR (02/17/2025 7:22 AM CDT) eGFR [...] LAB BLOOD ORDERABLES Final Re sult [facility] ([place]) 1 [facility] Department [place] [address] * (ABNORMAL) Differential, auto (02/17/2025 7:22 AM [...] Imm gran pct 0.3 % [facility] ([place]) Comment: Interpretive Data Percent cell count reference [...] MD LAB BLOOD ORDERABLES Final Re sult [facility] (IAN) 1 [facility] Department [place] [address] * (ABNORMAL) CBC with auto differential (02/17/2025 [...] (IAN) MCHC 33.4 32.3 - 35.7 g/dL [facility] (IAN) RDW CV 11.5 11.1 - 14.9 % [facility] ([facility]) RDW SD 38.9 35.7 - 48.1 fL [facility] ([facility]) NRBC abs 0.00 0.00 - 0.01 K/cumm [facility] (IAN) Blood Venous blood specimen / Unknown 02/17/2025 7:22 AM CDT 02/17/2025 7:31 AM CDT us Stephan Christopher MD LAB BLOOD ORDERABLES Final Re sult [facility] (IAN) 1 [facility] [place] [address] * Lipase (02/17/2025 7:22 AM CDT) Pathologist [facility] Lipase 20 10 - 99 Units/L Blood Venous blood specimen / Unknown 02/17/2025 7:22 AM CDT 02/17/2025 7:31 AM CDT us Stephan Christopher MD LAB BLOOD ORDERABLES Final Re sult Performing Organization Address City/[facility]/ZIP Co de Phone Number [facility] (IAN) 1 [facility] [place] [address] * Comprehensive metabolic panel (02/17/2025 7:22 AM CDT) Sodium 136 135 - 145 mmol/L Potassium, pl 4.0 3.3 - 4.9 mmol/L [facility] (IAN) Chloride 101 97 - 110 mmol/L [facility] (IAN) CO2 23 22 - 32 mmol/L [facility] (IAN) Anion gap 12 2 - 15 mmol/L [facility] (IAN) BUN 7 6 - 25 mg/dL [facility] (IAN) Creatinine 0.64 0.60 - 1.10 mg/dL [facility] (IAN) Glucose 96 70 - 199 [...] classification and Diagnosis of Diabetes Diabetes Care 2021; 46: S19-S40. Current interpretive data was last [...] MD LAB BLOOD ORDERABLES Final Re sult [facility] ([place]) 1 [facility] [place] [address] * (ABNORMAL) Urinalysis reflex to microscopic and [...] tendency for uric acid stone formation. Source: [facility] Current Interpretive Data was last revised on [...] Reflex to microscopic UA will be performed. [facility] (IAN) Urine 02/17/2025 2:33 AM CDT 02/17/2025 2:44 AM CDT us Stephan Christopher MD LAB MICROBIOLOGY - GENERAL OR DERABLES Final Result Performing Organization Address City/State/[facility] Co de Phone Number KIRANMARIO DOLAN (IAN) 1 [facility] Department [place] [address] * (ABNORMAL) Urinalysis, microscopic only (02/17/2025 2:33 AM CDT) WBC, ur 11-20(A) 0 - 5 /HPF RBC, ur 3-5(A) 0 - 2 /HPF [facility] (IAN) Epithelial cells, squamous, ur 11-20(A) 0 - 5 /HPF [facility] (IAN) Mucous, ur Present(A) [facility] (IAN) Culture Reflex Comment Reflex to urine culture will be performed. [facility] (IAN) Urine 02/17/2025 2:33 AM CDT 02/17/2025 2:44 AM CDT Stephan Christopher MD LAB URINE ORDERABLES Final Re sult GLENDA DOLAN (IAN) 1 [facility] [place] [place] [address] * Urine culture Urine (02/17/2025 2:33 AM CDT) Report Final Report: Growth indicative of contamination with periurethral kali. Please submit a new specimen with special attention given to the collection process and to prompt transport to the laboratory. Comment:Testing performed by : [facility], [address] [place]., [address] Organism GROWTH INDICATES CONTAM WITH PERIURETHRAL KALI. KIRANMARIO DOLAN (IAN) Urine 02/17/2025 2:33 AM CDT 02/17/2025 5:45 AM CDT Narrative GLENDA MAGDALENO (IAN) - 02/18/2025 12:23 PM CDT Urine culture reflexed based upon urinalysis results. Testing performed by [facility] Microbiology Laboratory ([phone]) us Stephan Christopher MD LAB MICROBIOLOGY - GENERAL OR DERABLES Final Result Performing Organization Address City/[facility]/ZIP Co de Phone Number GLENDA HoskinsOSAGE) 1 [facility] [place] [address] * POCT hCG, urine (02/17/2025 2:15 AM CDT) HCG, ur, POC Negative Negative Lot Number [id number] QC Backgroud Clear Acceptable QC Control Line Acceptable Urine 02/17/2025 2:15 AM CDT Stephan Christopher MD POINT OF CARE TEST ORDERABLES Final Result * ECG 12 lead (02/17/2025 1:37 AM CDT) 02/17/2025 1:37 AM CDT Narrative [facility] - 02/17/2025 5:42 PM CDT Vent Rate: 100 bpm RR Interval: 598 msec OR Interval: 143 msec QRS Duration: 87 msec QT Interval: 347 msec QTC Interval: 404 msec P-R-T [place]: 26 - 15 - 11 degrees IMPRESSION: SINUS TACHYCARDIA ABNORMAL RHYTHM ECG Electronically Signed By: Madhu Coyle MD Stephan Christopher MD ECG ORDERABLES Final Result [facility] from Last 3 Months Insurance [employer] OOS Care Teams Relocation Counselor Relationship Specialty Start Date End Date Phuong Quiroga MD [address] [place] [address] PCP - General Family Medicine 08/01/24
[2025-02-21 03:17] LABS: Hematocrit 36.4 % (37.0-47.0); Hemoglobin 11.9 g/dL (12.0-15.0); Immature Granulocyte Percent A 0.5 % (0-0.5); Lymphocytes Absolute Auto 1.41 K/mm3 (0.9-3.2); Mean Corpuscular HGB Conc 32.7 g/dl (32-36); Mean Corpuscular Hemoglobin 30.4 pg (26-34); Mean Corpuscular Volume 93.1 fl (80-100); Nucleated Red Blood Cells Absolute Auto 0.000 K/mm3 (0.0-0.012); Nucleated Red Blood Cells Perc 0.0 % (0.0-0.2); Platelet Count Result 380 k/mm3 (150-375); Red Blood Count 3.91 M/mm3 (4.2-5.4); White Blood Count 10.0 K/mm3 (4.5-10.0)
[2025-02-21 03:30] LABS: Alanine Aminotransferase 18 U/L (6-35); Albumin Level 3.6 g/dL (3.5-5.1); Alkaline Phosphatase 83 U/L (38-126); Anion Gap 9 mmol/L (4-12); Aspartate Amino Transferase 21 U/L (14-36); Bilirubin,Total 0.5 mg/dL (0.2-1.3); Blood Urea Nitrogen 11 mg/dL (7-17); Calcium 9.0 mg/dL (8.4-10.2); Carbon Dioxide 23 mmol/L (22-30); Chloride 104 mmol/L (98-107); Estimated CRCL calculation 123 ml/min; Estimated Glomerular Filt Rate > 60; Glucose 121 mg/dL (65-110); Lipase 41 U/L (23-300); Potassium 3.8 mmol/L (3.4-5.0); Sodium 136 mmol/L (137-145); Total Protein 7.2 g/dL (6.3-8.2)
--- OUTSIDE RECORDS SUMMARY | 2025-02-21 03:36 | XMS_ITS | Referral Summary ---
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 Gender Identity Not on file Sexual Orientation [...] BLOOD ORDERABLES Final Re sult [facility] [place] 1 [facility] Department of Laboratories [place], [place] [id number] * eGFR (02/17/2025 7:22 AM CDT) eGFR [...] BLOOD ORDERABLES Final Re sult [facility] ([place]) 1 [facility] Department [place] [address] * (ABNORMAL) Differential, auto (02/17/2025 7:22 AM [...] Final Re sult [facility] ([place]) 1 [facility] [place] [address] * (ABNORMAL) CBC with auto differential (02/17/2025 [...] (IAN) MCHC 33.4 32.3 - 35.7 g/dL [facility] ([place]) RDW CV 11.5 11.1 - 14.9 % [facility] RDW SD 38.9 35.7 - 48.1 fL [facility] ([facility] NRBC abs 0.00 0.00 - 0.01 K/cumm [facility] ([place]) Blood Venous blood specimen / Unknown 02/17/2025 7:22 AM CDT 02/17/2025 7:31 AM CDT us Stephan Christopher MD LAB BLOOD ORDERABLES Final Re sult [facility] ([place]) 1 [facility] [place] [address] * Lipase (02/17/2025 7:22 AM CDT) Pathologist [facility] Lipase 20 10 - 99 Units/L Blood Venous blood specimen / Unknown 02/17/2025 7:22 AM CDT 02/17/2025 7:31 AM CDT us Stephan Christopher MD LAB BLOOD ORDERABLES Final Re sult Performing Organization Address City/[facility]/ZIP Co de Phone Number [facility] ([place]) 1 [facility] [place] [address] * Comprehensive metabolic panel (02/17/2025 7:22 AM CDT) Sodium 136 135 - 145 mmol/L Potassium, pl 4.0 3.3 - 4.9 mmol/L [facility] ([place]) Chloride 101 97 - 110 mmol/L [facility] ([place]) CO2 23 22 - 32 mmol/L [facility] ([place]) Anion gap 12 2 - 15 mmol/L [facility] ([place]) BUN 7 6 - 25 mg/dL [facility] ([place]) Creatinine 0.64 0.60 - 1.10 mg/dL [facility] ([place]) Glucose 96 70 - [...] MD LAB BLOOD ORDERABLES Final Re sult [facility] ([place]) 1 [facility] Department [place] [address] * (ABNORMAL) Urinalysis reflex to microscopic and [...] tendency for uric acid stone formation. Source: [facility] Laboratories Current Interpretive Data was last [...] OR DERABLES Final Result Performing Organization Address City/State/[facility] Co de Phone Number KIRANMARIO DOLAN ([place]) 1 [facility] Department [place] [address] * (ABNORMAL) Urinalysis, microscopic only [...] Final Re sult GLENDA DOLAN ([place]) 1 [facility] [place] [address] * Urine culture Urine (02/17/2025 2:33 AM CDT) Report Final Report: Growth indicative of contamination with periurethral kali. Please submit a new specimen with special attention given to the collection process and to prompt transport to the laboratory. Comment:Testing performed by : [facility], 1 [place]., [address] Organism GROWTH INDICATES CONTAM WITH PERIURETHRAL KALI. [facility]ANMAR[facility] DOL[facility] ([place]) Urine 02/17/2025 2:33 AM CDT 02/17/2025 5:45 AM CDT Narrative [facility]ENDA MAGDALENO ([place]) - 02/18/2025 12:23 PM CDT Urine culture reflexed based upon urinalysis results. Testing performed by [facility] ([phone]) us Stephan Christopher MD LAB MICROBIOLOGY - GENERAL OR DERABLES Final Result Performing Organization Address City/[facility]/ZIP Co de Phone Number [facility]DA [place]) 1 [facility] [place] [address] * POCT hCG, urine (02/17/2025 2:15 AM CDT) HCG, ur, POC Negative Negative Lot Number [id number] QC Backgroud Clear Acceptable QC Control Line Acceptable Urine 02/17/2025 2:15 AM CDT Stephan Christopher MD POINT OF CARE TEST ORDERABLES Final Result * ECG 12 lead (02/17/2025 1:37 AM CDT) 02/17/2025 1:37 AM CDT Narrative [facility] - 02/17/2025 5:42 PM CDT Vent Rate: 100 bpm RR Interval: 598 msec [place] Interval: 143 msec QRS Duration: 87 msec QT Interval: 347 msec QTC Interval: 404 msec P-R-T [place]: 26 - 15 - 11 degrees IMPRESSION: SINUS TACHYCARDIA ABNORMAL RHYTHM ECG Electronically Signed By: Madhu Coyle MD Stephan Christopher MD ECG ORDERABLES Final Result [facility] from Last 3 Months Insurance SaleMove OOS Care Teams International Representative Relationship Specialty Start Date End Date Phuong Quiroga MD [address] [place] [address] PCP - General Family Medicine 08/01/24
--- OUTSIDE RECORDS SUMMARY | 2025-02-21 03:36 | XMS_ITS | Clinical Summary ---
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 Gender Identity Not on file Sexual Orientation [...] BLOOD ORDERABLES Final Re sult [facility]DA DOLAN [place]) 1 [facility] Department [place] [address] [phone] * eGFR (02/17/2025 7:22 AM CDT) eGFR [...] MD LAB BLOOD ORDERABLES Final Re sult [facility] ([place]) 1 [facility] Department [place] [address] * (ABNORMAL) Differential, auto (02/17/2025 7:22 AM [...] Final Re sult GLENDA DOLAN ([place]) 1 [facility] Department [place] [address] * (ABNORMAL) CBC with auto differential (02/17/2025 [...] ORDERABLES Final Re sult Performing Organization Address City/[facility]/ZIP Co de Phone Number GLENDA DOLAN ([place]) 1 [facility] [place] [address] * Lipase (02/17/2025 7:22 AM CDT) Lipase 20 10 - 99 Units/L Blood Venous blood specimen / Unknown 02/17/2025 7:22 AM CDT 02/17/2025 7:31 AM CDT Stephan Christopher MD LAB BLOOD ORDERABLES Final Re sult [facility] ([facility] 1 [facility] [place] [address] * Comprehensive metabolic panel (02/17/2025 7:22 AM [...] Re sult [facility] ([place]) 1 [facility] [place] [address] * (ABNORMAL) Urinalysis reflex to microscopic and [...] tendency for uric acid stone formation. Source: [facility] Current Interpretive Data was last revised on [...] MICROBIOLOGY - GENERAL OR DERABLES Final Result [facility] ([place]) 1 [facility] [place] [address] * (ABNORMAL) Urinalysis, microscopic only (02/17/2025 2:33 AM CDT) WBC, ur 11-20(A) 0 - 5 /HPF RBC, ur 3-5(A) 0 - 2 /HPF [facility] ([place]) Epithelial cells, squamous, ur 11-20(A) 0 - 5 /HPF [facility] ([place]) Mucous, ur Present(A) [facility] ([place]) Culture Reflex Comment Reflex to urine culture will be performed. [facility] DOLAN ([place]) Urine 02/17/2025 2:33 AM CDT 02/17/2025 2:44 AM CDT Stephan Christopher MD LAB URINE ORDERABLES Final Re sult Performing Organization Address City/[facility]/ZIP Co de Phone Number [facility]DA DOLAN ([place]) 1 [facility] [place] [address] * Urine culture Urine (02/17/2025 2:33 AM CDT) Report Final Report: Growth indicative of contamination with periurethral kali. Please submit a new specimen with special attention given to the collection process and to prompt transport to the laboratory. Comment:Testing performed by : [facility], [address] [facility] [place] [address] Organism GROWTH INDICATES CONTAM WITH PERIURETHRAL KALI. [facility]DA DOLAN ([place]) Urine 02/17/2025 2:33 AM CDT 02/17/2025 5:45 AM CDT Narrative [facility]DA DOLAN ([place]) - 02/18/2025 12:23 PM CDT Urine culture reflexed based upon urinalysis results. Testing performed by [facility] ([phone]) Stephan Christopher MD LAB MICROBIOLOGY - GENERAL OR DERABLES Final Result Performing Organization Address City/[facility]/ZIP Co de Phone Number GLENDA DOLAN ([place]) 1 [facility] [place] [address] * POCT hCG, urine (02/17/2025 2:15 AM CDT) HCG, ur, POC Negative Negative Lot Number [id number] QC Backgroud Clear Acceptable QC Control Line Acceptable Urine 02/17/2025 2:15 AM CDT Stephan Christopher MD POINT OF CARE TEST ORDERABLES Final Result * ECG 12 lead (02/17/2025 1:37 AM CDT) 02/17/2025 1:37 AM CDT Narrative [facility] - 02/17/2025 5:42 PM CDT Vent Rate: 100 bpm RR Interval: 598 msec [place] Interval: 143 msec QRS Duration: 87 msec QT Interval: 347 msec QTC Interval: 404 msec P-R-T [place]: 26 - 15 - 11 degrees IMPRESSION: SINUS TACHYCARDIA ABNORMAL RHYTHM ECG Electronically Signed By: Madhu Coyle MD Stephan Christopher MD ECG ORDERABLES Final Result [facility] from Last 3 Months Insurance exoro system OOS Member Subscriber Plan / Payer (Ef fective 2024-Present) Name:July Angelo Relation to Subscriber:Spouse Name:Derick Angelo Date of :1995 Address: [address] [place] [address] Payer ID:[id number] (NAIC) Type: ALLIANCE Address: [facility] [id number] [place] [id number] Care Teams Touch Up Worker Relationship Specialty Start Date End Date Phuong Quiroga MD [address] [place] [address] PCP - General Family Medicine 08/01/24
[2025-02-21] MEDS: ONDANSETRON INJ 4 MG/2 ML VIAL IV PUSH (03:41)
--- NOTE | 2025-02-21 03:41 | ED_ITS ---
HPI - Nausea/Vomiting/Diarrhea General Chief complaint: Nausea/Vomiting/Diarrhea Stated complaint: n/v, fever Time Seen by Provider: 02/21/25 03:24 Source: patient and family Mode of arrival: ambulatory Limitations: no limitations History of Present Illness HPI Narrative: Patient presents with report of nausea and 2 episodes of nonbloody emesis. She has had subjective fevers as she measured her temperature at 99.3? F and began to feel even warmer than this. Patient underwent cholecystectomy on Wednesday with Dr. Steff palomino and was just discharged yesterday, 02/20/2025. That found acute gangrenous cholecystitis intraoperatively. She went and had wrote his recheck in potatoes around 630 or 7:00 p.m.. She was trying to avoid any greasy hard to me but thinks that it might of been possible. Around 2:30 a.m. is when her symptoms began and partner states that she had beads of sweat her face. Patient was discharged 2 antibiotics and pain medicine. She had not started to a bowel movement before being discharged but reports she is passing flatus. She does not have regular periods that she is on Nexplanon. Related Data Home Medications ?Medication ?Instructions ?Recorded ?Confirmed ?Last Taken ?Type sertraline 50 mg tablet 50 mg PO HS 02/17/25 02/17/25 Unknown History Allergies Allergy/AdvReac Type Severity Reaction Status Date / Time mustard Allergy Intermediate Anaphylaxis Verified 02/21/25 03:58 lactose Allergy Mild Diarrhea Verified 02/21/25 03:58 [facility] Past Medical History Medical History (Updated 02/21/25 @ 07:03 by Yolande Vogel MD) Anxiety Surgical History Surgical History (Updated 02/21/25 @ 03:41 by Yolande Vogel MD) Hx laparoscopic cholecystectomy 02/18/25; Dr Whitley History of lumpectomy of left breast Family History Family History (Updated 02/17/25 @ 20:35 by Emigdio Holt RN) Grandparent Diabetes mellitus Hypertension Cancer of brain Grandparent Skin cancer Grandparent Thyroid cancer Grandparent Leukemia Social History Social History Smoking status: Never smoker Alcohol intake: current Drinks per week: 1 Substance use: never Do You Feel Safe in your Home?: Yes Lack of Transportation: No Lack of Food: Never True Current Housing: I Have Housing Concerned About Future Housing: No Difficulty Paying Gas/Electric Bills: No Difficulty Paying for Meds: No Currently Unemployed: No Education: Trade/Vocational Certificate Difficulty w/ Childcare or Family Care: No Spiritual care concerns: No Exam 2 Narrative: GENERAL: Well-appearing, well-nourished, and in no acute distress. HEAD: Normocephalic, atraumatic. EYES: Non injected, non icteric ENT: Nares clear, no rhinorrhea or epistaxis. Gross auditory acuity intact. NECK: Supple. No meningismus. CHEST: Speaking in full sentences. No respiratory distress. HEART: Tachycardic rate and rhythm. . ABDOMEN: Soft, nondistended. No rigidity or guarding. Not peritoneal. Incision sites well-healing (2 covered in skin glue, 1 has a 2x2 over it which is not removed but is without strikethrough). EXTREMITIES: Normal range of motion. No lower extremity edema. SKIN: Warm, dry, no rash. NEURO: No focal deficits. Alert and oriented. Answering questions. Following commands. Normal speech without aphasia or dysarthria. PSYCH: Normal mood and affect. Course Vital Signs Vital signs: Vital Signs Temperature 97.8 F 02/21/25 03:06 Pulse Rate 113 H 02/21/25 03:06 Respiratory Rate 18 02/21/25 03:06 Blood Pressure 121/72 02/21/25 03:06 Pulse Oximetry 100 02/21/25 03:06 Oxygen Delivery Room Air 02/21/25 03:06 Temperature 97.8 F 02/21/25 03:06 Pulse Rate 106 H 02/21/25 07:23 Respiratory Rate 15 02/21/25 07:23 Blood Pressure 115/92 H 02/21/25 07:23 Pulse Oximetry 100 02/21/25 07:23 Oxygen Delivery Room Air 02/21/25 03:06 MDM - Nausea/Vomiting/Diarrhea MDM Narrative Medical decision making narrative: Patient presents with nausea, 2 episodes of emesis, and subjective fevers. Just discharged yesterday 02/20/2025 after undergoing cholecystectomy which was found to have acute gangrenous cholecystitis. In the emergency department she is afebrile vital signs notable for tachycardia. IV fluids and Zofran ordered as well as famotidine. No leukocytosis, anemia stable. Mild thrombocytosis, likely acute phase reaction. test negative. Urinalysis with some abnormalities however patient is already on metronidazole on Augmentin. It has reflexed to culture. Discussed the patient's presentation including history, labs and imaging with Dr Whitley who concurs that given she is feeling better, reasonable to discharge home with plan to follow up at the previously recommended time frame, 2 weeks. Patient had already planned on calling later today to schedule that appointment. She is discharged with prescription for Zofran. Given ED return precautions. Otherwise stable. Differential Diagnosis Differential diagnosis: Likely food poisoning, drug-induced nausea and vomiting, dehydration and other (Postoperative complication; gastritis; pancreatitis) Lab Data Attestation: I reviewed the patient's lab results. 02/21/25 03:11 02/21/25 03:11 Labs: Lab Results 02/21/25 02/21/25 02/21/25 Range/Units 03:11 04:35 04:36 WBC 10.0 (4.5-10.0) K/mm3 RBC 3.91 L (4.2-5.4) M/mm3 Hgb 11.9 L (12.0-15.0) g/dL Hct 36.4 L (37.0-47.0) % MCV 93.1 (80-100) fl MCH 30.4 (26-34) pg MCHC 32.7 (32-36) g/dl RDW 11.7 (11.5-14.5) % Plt Count 380 H (150-375) k/mm3 MPV 8.3 (7.4-10.4) fl Immature Gran % (Auto) 0.5 (0-0.5) % Neut % (Auto) 78.1 H (45.5-73.1) % Lymph % (Auto) 14.1 L (18.3-44.2) % Luce % (Auto) 5.0 (2.6-8.5) % Eos % (Auto) 1.8 (0-4.4) % Baso % (Auto) 0.5 (0.2-1.2) % Lymph # (Auto) 1.41 (0.9-3.2) K/mm3 Luce # (Auto) 0.5 (0.1-0.6) K/mm3 Eos # (Auto) 0.2 (0-0.3) K/mm3 Baso # (Auto) 0.1 (0.0-0.1) K/mm3 Abs Immat Gran (auto) 0.05 H (0.00-0.031) K/mm3 Absolute Neuts (auto) 7.8 H (1.3-6.7) K/mm3 Absolute Nucleated RBC 0.000 (0.0-0.012) K/mm3 Nucleated RBC % 0.0 (0.0-0.2) % Sodium 136 L (137-145) mmol/L Potassium 3.8 (3.4-5.0) mmol/L Chloride 104 (98-107) mmol/L Carbon Dioxide 23 (22-30) mmol/L Anion Gap 9 (4-12) mmol/L BUN 11 (7-17) mg/dL Creatinine 0.64 L (0.7-1.0) mg/dL Estim Creat Clear Calc 123 ml/min Estimated GFR > 60 (59 - ) Glucose 121 H (65-110) mg/dL Lactic Acid (0.7-2.0) mmol/L Calcium 9.0 (8.4-10.2) mg/dL Total Bilirubin 0.5 (0.2-1.3) mg/dL AST 21 (14-36) U/L ALT 18 (6-35) U/L Alkaline Phosphatase 83 (38-126) U/L Total Protein 7.2 (6.3-8.2) g/dL Albumin 3.6 (3.5-5.1) g/dL Lipase 41 (23-300) U/L Urine Color Yellow (Yellow) Urine Appearance Clear (Clear) Urine pH 6.5 (5.0-9.0) Ur Specific [place] 1.024 (1.001-1.035) Urine Protein Trace (Negative) mg/dL Urine Glucose (UA) Negative (Negative) mg/dL Urine Ketones 3+ H (Negative) mg/dL Ur Blood (Man) Negative (Negative) Urine Nitrate Negative (Negative) Urine Bilirubin Negative (Negative) Urine Urobilinogen 1.0 (<2.0) mg/dL Leukocyte Esterase Rfl 1+ H (Negative) SHAHIDA/UL Urine RBC 3-5 H (0-2) /hpf Urine WBC 6-10 H (0-3) /hpf Ur Squamous Epith Cells Few (Few) /hpf Urine Bacteria None seen /hpf Urine Casts 0-2 POC Urine HCG, Qual Negative (Negative) 02/21/25 Range/Units 05:18 WBC (4.5-10.0) K/mm3 RBC (4.2-5.4) M/mm3 Hgb (12.0-15.0) g/dL Hct (37.0-47.0) % MCV (80-100) fl MCH (26-34) pg MCHC (32-36) g/dl RDW (11.5-14.5) % Plt Count (150-375) k/mm3 MPV (7.4-10.4) fl Immature Gran % (Auto) (0-0.5) % Neut % (Auto) (45.5-73.1) % Lymph % (Auto) (18.3-44.2) % Luce % (Auto) (2.6-8.5) % Eos % (Auto) (0-4.4) % Baso % (Auto) (0.2-1.2) % Lymph # (Auto) (0.9-3.2) K/mm3 Luce # (Auto) (0.1-0.6) K/mm3 Eos # (Auto) (0-0.3) K/mm3 Baso # (Auto) (0.0-0.1) K/mm3 Abs Immat Gran (auto) (0.00-0.031) K/mm3 Absolute Neuts (auto) (1.3-6.7) K/mm3 Absolute Nucleated RBC (0.0-0.012) K/mm3 Nucleated RBC % (0.0-0.2) % Sodium (137-145) mmol/L Potassium (3.4-5.0) mmol/L Chloride (98-107) mmol/L Carbon Dioxide (22-30) mmol/L Anion Gap (4-12) mmol/L BUN (7-17) mg/dL Creatinine (0.7-1.0) mg/dL Estim Creat Clear Calc ml/min Estimated GFR (59 - ) Glucose (65-110) mg/dL Lactic Acid 0.9 (0.7-2.0) mmol/L Calcium (8.4-10.2) mg/dL Total Bilirubin (0.2-1.3) mg/dL AST (14-36) U/L ALT (6-35) U/L Alkaline Phosphatase (38-126) U/L Total Protein (6.3-8.2) g/dL Albumin (3.5-5.1) g/dL Lipase (23-300) U/L Urine Color (Yellow) Urine Appearance (Clear) Urine pH (5.0-9.0) Ur Specific [place] (1.001-1.035) Urine Protein (Negative) mg/dL Urine Glucose (UA) (Negative) mg/dL Urine Ketones (Negative) mg/dL Ur Blood (Man) (Negative) Urine Nitrate (Negative) Urine Bilirubin (Negative) Urine Urobilinogen (<2.0) mg/dL Leukocyte Esterase Rfl (Negative) SHAHIDA/UL Urine RBC (0-2) /hpf Urine WBC (0-3) /hpf Ur Squamous Epith Cells (Few) /hpf Urine Bacteria /hpf Urine Casts POC Urine HCG, Qual (Negative) Imaging Data Radiologist's impression: Impressions Abdomen/Pelvis CT 02/21/25 05:51 Impression: 3.9 x 2.8 cm fluid collection in the infrahilar region with additional sign more amorphous fluid and/or edematous changes in the gallbladder fossa and right paracolic gutter region. Findings could reflect postoperative abscess versus possibly small biloma. If there is concern for bile leak, then HIDA scan would be recommended for further evaluation. Small bilateral pleural effusions. 3.1 cm left ovarian cyst. Discharge Plan Discharge Clinical Impression: Normocytic anemia, Thrombocytosis, Abnormal urinalysis, Nausea & vomiting, Post-operative nausea and vomiting, Pleural effusion, bacterial, Left ovarian cyst Patient Disposition: Home Condition: Stable Instructions: Antibiotic Form, Ovarian Cyst (ED), Pleural Effusion (DC), Acute Nausea and Vomiting (DC), Anemia (ED) Additional Instructions: Continue taking the medications you are prescribed. If you have nausea and vomiting again, the oral disintegrating tablets of Zofran/ondansetron can help. Call today to make your follow-up appointment with her surgeon. He states the same time frame is appropriate. Return to the emergency department if you have any new or worsening symptoms. Patient Language: Sinhala Prescriptions: New ondansetron 4 mg tablet,disintegrating 4 mg PO Q8H PRN (Reason: nausea and vomiting) Qty: 7 0RF No Action sertraline 50 mg tablet 50 mg PO HS hydrocodone-acetaminophen 5-325 mg Tablet 1 tablet PO Q6H PRN (Reason: pain, moderate) Qty: 10 0RF metronidazole 500 mg tablet 500 mg PO Q8H Qty: 15 0RF amoxicillin-pot clavulanate 875-125 mg tablet 1 tablet PO Q12H Qty: 15 0RF Follow-up/Referrals: Phuong Quiroga MD [Primary Care Provider] - Darshan Whitley DO [Physician] - Stand Alone Forms: Work/School Release IP Time of Disposition: 07:08
[2025-02-21] MEDS: FAMOTIDINE 20 MG/2 ML VIAL IV PUSH (04:15)
[2025-02-21 04:36] LABS: BEDSIDEPREGUCG Negative (Negative)
[2025-02-21 05:02] LABS: Add Urine Microscopic? YES; Appearance Urine Clear (Clear); Glucose Urine UA Negative (Negative); Leukocyte Esterase Ur 1+ LEU/UL (Negative); Nitrate Urine Negative (Negative); Non Pathogenic Casts 0-2; Specific Grav Ur 1.024 (1.001-1.035)
[2025-02-21] MEDS: SODIUM CHLORIDE 0.9% IV 1,000 ML 999 ML IV CONT (05:02)
== END 2025-02-21 07:26 | disposition home or self-care (01) ==
PROVIDERS: Emergency Provider Student in an Organized Health Care Education/Training Program; PCP Family Medicine
DX: R11.2 Nausea with vomiting, unspecified (principal); J90 Pleural effusion, not elsewhere classified; D75.839 Thrombocytosis, unspecified; D64.9 Anemia, unspecified; N83.202 Unspecified ovarian cyst, left side; R82.998 Other abnormal findings in urine; Z98.890 Other specified postprocedural states; F41.9 Anxiety disorder, unspecified; Z90.49 Acquired absence of other specified parts of digestive tract; Z79.899 Other long term (current) drug therapy
CPT/HCPCS: 36415; 74177; 80053; 81001; 81025; 83605; 83690; 85025; 87086; 96361; 96374; 96375; 99284; J2405; J7030; Q9967